=== PATIENT | female | born 1940 | race Caucasian/White ===

== ENCOUNTER 2018-04-10 08:33 | Day surgery (SDC) | payer MEDICARE, MEDICAID ==
[2018-04-10] MEDS ORDERED: Sodium Chloride 0.9% 5 ML Syringe FLUSH PRN (09:00)
[2018-04-10] MEDS ORDERED: fentaNYL 100 MCG/2 ML SDV ONE (09:09)
[2018-04-10] MEDS ORDERED: Propofol 200 MG/20 ML SDV ONE ×2 (09:09→09:58)
[2018-04-10] MEDS ORDERED: Midazolam 1 MG/ML 2 ML SDV ONE (09:09)
[2018-04-10] MEDS: Sodium Chloride 0.9% 1,000 ML IV SCH (09:18)
[2018-04-10] MEDS ORDERED: Lactated Ringers 1,000 ML ONE (09:58)
[2018-04-10] MEDS ORDERED: ePHEDrine 50 MG/ML SDV IV ONE (10:10)
[2018-04-10] MEDS ORDERED: fentaNYL 100 MCG/2 ML SDV IV ONE (10:10)
[2018-04-10] MEDS ORDERED: Propofol 200 MG/20 ML SDV IV ONE (10:10)
[2018-04-10] MEDS ORDERED: Midazolam 1 MG/ML 2 ML SDV IV ONE (10:10)
--- NOTE | 2018-04-10 10:16 | PCM.PN ---
- General Info Date of Service: 04/10/18 - Review of Systems Systems Review Comment:: 78-year-old female with history of colon polyps and family history of colon cancer here for colonoscopy. She is medically stable to proceed today with no significant recent changes in her health status. Her recent history and physical is reviewed. I discussed the proposed colonoscopy with the patient. She agrees to proceed accepting risks. - Patient Data Vitals - Most Recent: Last Vital Signs Temp 97.5 F 04/10/18 09:00 Pulse 59 L 04/10/18 09:00 Resp 16 04/10/18 09:00 BP 139/70 04/10/18 09:00 Pulse Ox 98 04/10/18 09:00 Weight - Most Recent: 78.018 kg Lab Results Last 24 Hours: Laboratory Results - last 24 hr 04/10/18 Range/Units 09:05 POC Glucose 138 H (74-106) mg/dl Med Orders - Current: Current Medications Sodium Chloride (Normal Saline) 1,000 mls @ 50 mls/hr IV ASDIRECTED MERCEDES Last Admin: 04/10/18 09:18 Dose: 50 mls/hr Sodium Chloride (Syrex Flush) 5 ml FLUSH Q8HR PRN PRN Reason: Keep Vein Open Discontinued Medications Fentanyl (Sublimaze) Confirm Administered Dose 100 mcg .ROUTE .STK-MED ONE Stop: 04/10/18 09:10 Midazolam HCl (Versed 1 Mg/Ml) Confirm Administered Dose 2 mg .ROUTE .STK-MED ONE Stop: 04/10/18 09:10 Propofol (Diprivan 20 Ml) Confirm Administered Dose 200 mg .ROUTE .STK-MED ONE Stop: 04/10/18 09:10 - Problem List Review Problem List Initiated/Reviewed/Updated: Yes - My Orders Last 24 Hours: My Active Orders 04/09/18 16:21 Resuscitation Status Routine 04/10/18 09:00 Blood Glucose Check, Bedside [RC] BIDMEALS Patient to Empty Bladder [RC] ASDIRECTED Peripheral IV Care [RC] . DIRECTED Verify Patient Consent Obtain [RC] ASDIRECTED Vital Signs [RC] PER UNIT ROUTINE Sodium Chloride 0.9% [Normal Saline] 1,000 ml IV ASDIRECTED Sodium Chloride 0.9% [Syrex Flush] 5 ml FLUSH Q8HR PRN Peripheral IV Insertion Adult [OM.PC] Routine 04/10/18 Breakfast Nothing Per Oral Diet [DIET] - Assessment Assessment:: Family history of colon cancer - Plan Plan:: Colonoscopy
--- NOTE | 2018-04-10 11:26 | PCM.OPNOTE ---
- General Post-Op/Procedure Note Date of Surgery/Procedure: 04/10/18 Operative Procedure(s): Colonoscopy with polypectomy and fulgaration Findings: Multiple small right sided colon polyps Moderate Sigmoid Diverticulosis External Hemorrhoids Pre Op Diagnosis: Family History of Colon Cancer Post-Op Diagnosis: Colon Polyps. Diverticulosis. Hemorrhoids Anesthesia Technique: MAC Primary Surgeon: Emir Lopez Pathology: Multiple colon polyps Output, Urine Amount: 0 EBL in mLs: 0 Complications: None Condition: Good
--- NOTE | 2018-04-10 18:08 | OR ---
DATE OF SURGERY: 04/10/2018 SURGEON: Emir Lopez MD PREOPERATIVE DIAGNOSIS: Family history of colon cancer. POSTOPERATIVE DIAGNOSIS: Multiple colon polyps, diverticulosis, and hemorrhoids. OPERATION PERFORMED: Colonoscopy with polypectomy and fulguration. INDICATIONS FOR SURGERY: This 78-year-old female has a known family history of colon cancer in her first-degree relative. It has been several years since her last colonoscopy and she comes to have this exam performed today. FINDINGS: Multiple polyps are noted in the patient's right colon. There were clusters of polyps in the proximal transverse colon, the hepatic flexure, and the cecum. Each of these areas had 3 to 5 small sessile polyps. These ranged in size from 4 to 6 mm. The patient also has a moderate degree of sigmoid diverticulosis which is not acutely inflamed or otherwise complicated. She also has some [id number] sized external hemorrhoids. DESCRIPTION OF PROCEDURE: The patient was taken to the operating room. She was given intravenous sedation and with her in the left lateral decubitus position, digital rectal exam was performed showing no rectal masses. The Olympus colonoscope was inserted into the rectum. Retroflexed examination of the rectal canal was performed. The scope was then carefully advanced under direct visualization through the left side of the colon. Once the right side of the colon was reached, multiple polyps were noted, and these were treated as encountered. The larger polyps were removed with cautery snare and retrieved into a polyp trap. The smaller polyps were destroyed with the snare by fulguration. In this manner, all visualized polyps were either destroyed or removed, and those removed were submitted for pathologic evaluation. With careful persistent manipulation, the scope was able to be advanced to the cecum and cecal acquisition was confirmed by noting the normal internal cecal anatomy including the appendiceal orifice and ileocecal valve. Once the cecum had been carefully examined, and the cecal polyps had been removed or destroyed, the scope was slowly withdrawn, sequentially re-examining the colonic segments. Some small polyps were also noted during scope withdrawal, and they were also destroyed either by cautery snare or fulguration with the snare. After the entire colon and rectum had been fully examined and with no sign of bleeding or any other complication, the scope was removed and the patient was taken from the operating room in satisfactory condition. ESTIMATED BLOOD LOSS: Zero. COMPLICATIONS: None. PROGNOSIS: Good. /[id number]/MODL
== END 2018-04-10 12:20 | disposition home or self-care (01) ==
LOC: KA.SDS 08:33
PROVIDERS: ATTEND Surgery
DX: Z12.11 Encounter for screening for malignant neoplasm of colon (principal); D12.0 Benign neoplasm of cecum; D12.3 Benign neoplasm of transverse colon; K57.30 Diverticulosis of large intestine without perforation or abscess without bleeding; K64.4 Residual hemorrhoidal skin tags; E11.36 Type 2 diabetes mellitus with diabetic cataract; E66.9 Obesity, unspecified; Z68.27 Body mass index [BMI] 27.0-27.9, adult; K21.9 Gastro-esophageal reflux disease without esophagitis; F32.9 Major depressive disorder, single episode, unspecified; M19.90 Unspecified osteoarthritis, unspecified site; E89.0 Postprocedural hypothyroidism; E78.5 Hyperlipidemia, unspecified; F41.1 Generalized anxiety disorder; Z79.84 Long term (current) use of oral hypoglycemic drugs; Z79.82 Long term (current) use of aspirin; Z79.899 Other long term (current) drug therapy; Z88.5 Allergy status to narcotic agent; Z80.0 Family history of malignant neoplasm of digestive organs
CPT/HCPCS: 00812; 82962; J2250; J2704; J3010; J7030

== ENCOUNTER 2019-03-28 13:08 | Emergency (ER) | payer MEDICARE, MEDICAID ==
--- NOTE | 2019-03-28 13:34 | EDM.PDOC ---
ED HPI GENERAL MEDICAL PROBLEM - General Chief Complaint: General Stated Complaint: MULTIPLE FALLS Time Seen by Provider: 03/28/19 13:24 Source of Information: Reports: Patient, Family (Daughter is a nurse here at [employer]). 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 Patient states that she has been gradually becoming weaker in her lower extremities, and 4 days ago fell from a standing position, landing on right hip and also injuring back. Patient's daughter is a nurse here at [employer] and present. Patient was seen by primary care doctor yesterday, and underwent CT chest to rule out PE due to history of DVT. Radiology report was negative for PE. No further x-rays were performed to evaluate extent of fall. At this time. Patient denies chest pain, shortness of breath, abdominal pain, nausea, vomiting , diarrhea, any head injury, blurry vision, or pain anywhere else. Onset: Gradual Onset Date: 03/24/19 Duration: Day(s):, Getting Worse Location: Reports: Back, Pelvis Quality: Reports: Ache Severity: Mild Improves with: Reports: Immobilization Worsens with: Reports: Movement Context: Reports: Trauma (Fall from standing position) Associated Symptoms: Reports: No Other Symptoms. Denies: Chest Pain, Fever/ Chills, Nausea/Vomiting, Shortness of Breath Middle Back Pain Score (Numeric/FACES): 0 - Related Data Allergies Allergy/AdvReac Type Severity Reaction Status Date / Time morphine Allergy Nausea Verified 03/28/19 13:17 Home Meds: Home Meds Acai Hester Extract [Acai] 1,000 mg PO DAILY 04/09/18 [History] Aspirin [Adult Aspirin] 81 mg PO DAILY 04/09/18 [History] Aspirin/Acetaminophen/Caffeine [Extra Pain Relief Caplet] 2 tab PO Q6H PRN 04/09 [History] Chromium Picolinate 200 mcg PO DAILY 04/09/18 [History] Cyanocobalamin (Vitamin B-12) [B-12] 1,000 mcg PO DAILY 04/09/18 [History] Escitalopram Oxalate 10 mg PO DAILY 04/09/18 [History] Levothyroxine 112 mcg PO ACBREAKFAST 04/09/18 [History] Niacin 500 mg PO DAILY 04/09/18 [History] Ubidecarenone [Co Q-10] 100 mg PO DAILY 04/09/18 [History] metFORMIN [Glucophage] 500 mg PO BIDMEALS 04/09/18 [History] Calcium Carb/Vit D3/Minerals [Calcium 600+D Plus Minerals] 1 tab PO DAILY [History] Cetirizine HCl [Zyrtec] 10 mg PO DAILY 04/10/18 [History] Cinnamon [Cinnamon Oil] 30 ml PO DAILY 03/28/19 [History] Flaxseed Oil [Flax Oil] 1,000 mg PO DAILY 03/28/19 [History] Past Medical History HEENT History: Reports: Cataract, Impaired Vision Respiratory History: Reports: Pneumonia, Recurrent, Sleep Apnea Gastrointestinal History: Reports: Diverticulosis, GERD, Hiatal Hernia Genitourinary History: Reports: Renal Calculus, Urinary Incontinence, UTI, Recurrent CENSUS CLERK History: Reports: , Spontaneous Musculoskeletal History: Reports: Back Pain, Chronic, Fracture Neurological History: Reports: Concussion Psychiatric History: Reports: Anxiety, Depression, Panic Attack Endocrine/Metabolic History: Reports: Diabetes Mellitus, Type 3c, Hypoparathyroidism, Hypothyroidism - Infectious Disease History Infectious Disease History: Reports: Chicken Pox, Measles, Mumps - Past Surgical History Head Surgeries/Procedures: Reports: None HEENT Surgical History: Reports: Tonsillectomy Respiratory Surgical History: Reports: None GI Surgical History: Reports: Appendectomy, Cholecystectomy, Colonoscopy, EGD, Polypectomy Female Surgical History: Reports: Breast Biopsy, Hysterectomy, Lithotripsy/ ESWL, Salpingo-Oophorectomy, Other (See Below) Other Female Surgeries/Procedures: bladder repair Endocrine Surgical History: Reports: Parathyroidectomy, Thyroidectomy, Other ( See Below) Other Endocrine Surgeries/Procedures: Removed half of thyroid Neurological Surgical History: Reports: None Musculoskeletal Surgical History: Reports: Hip Replacement Dermatological Surgical History: Reports: None Social & Family History - Family History Family Medical History: Noncontributory - Tobacco Use Smoking Status *Q: Never Smoker - Caffeine Use Caffeine Use: Reports: None - Recreational Drug Use Recreational Drug Use: No ED ROS GENERAL - Review of Systems Review Of Systems: ROS reveals no pertinent complaints other than HPI. Constitutional: Reports: No Symptoms HEENT: Reports: No Symptoms Respiratory: Reports: No Symptoms Cardiovascular: Reports: No Symptoms Endocrine: Reports: No Symptoms GI/Abdominal: Reports: No Symptoms. Denies: Abdominal Pain : Reports: No Symptoms Musculoskeletal: Reports: Back Pain Skin: Reports: No Symptoms Neurological: Reports: No Symptoms Psychiatric: Reports: No Symptoms Hematologic/Lymphatic: Reports: No Symptoms Immunologic: Reports: No Symptoms ED EXAM, GENERAL - Physical Exam Exam: See Below Exam Limited By: No Limitations General Appearance: Alert, WD/WN, No Apparent Distress Throat/Mouth: Normal Inspection, Normal Oropharynx, No Airway Compromise Head: Atraumatic, Normocephalic Neck: Normal Inspection, Supple, Non-Tender, Full Range of Motion Respiratory/Chest: No Respiratory Distress, Lungs Clear, Normal Breath Sounds, No Accessory Muscle Use, Chest Non-Tender Cardiovascular: Regular Rate, Rhythm, No Murmur GI/Abdominal: Normal Bowel Sounds, Soft, Non-Tender, No Organomegaly, No Distention, No Abnormal Bruit, No Mass, Pelvis Stable Back Exam: Paraspinal Tenderness. No: CVA Tenderness (L), CVA Tenderness (R) Extremities: Normal Inspection, Normal Range of Motion, Non-Tender, No Pedal Edema Neurological: Alert, Oriented, Normal Cognition Psychiatric: Normal Affect, Normal Mood Skin Exam: Warm, Dry, Intact, Normal Color, No Rash Lymphatic: No Adenopathy Course - Vital Signs Last Recorded V/S: Last Vital Signs Temp 98.7 F 03/28/19 13:11 Pulse 65 03/28/19 13:11 Resp 20 03/28/19 13:11 BP 115/53 L 03/28/19 13:11 Pulse Ox 99 03/28/19 13:11 - Orders/Labs/Meds Orders: Active Orders 24 hr Category Date Time Status Lumbar Spine 2 or 3V [CR] Stat Exams 03/28/19 13:24 Ordered Pelvis 1V or 2V [CR] Stat Exams 03/28/19 13:24 Ordered Labs: Laboratory Tests 03/28/19 03/28/19 03/28/19 Range/Units 13:18 13:20 13:20 WBC 6.85 (5.00-10.00) 10^3/uL RBC 4.14 (3.80-5.50) 10^6/uL Hgb 12.6 (12.0-16.0) g/dL Hct 38.5 (37.0-47.0) % MCV 93.0 H (82.0-92.0) fL MCH 30.4 (27.0-31.0) pg MCHC 32.7 (32.0-36.0) g/dL RDW 13.1 (11.5-14.5) % Plt Count 363 (150-400) 10^3/uL MPV 9.3 (7.4-10.4) fL Immature Gran % (Auto) 0.3 (0.0-5.0) % Neut % (Auto) 58.7 (50.0-70.0) % Lymph % (Auto) 31.1 (20.0-40.0) % Colbert % (Auto) 6.1 (2.0-8.0) % Eos % (Auto) 2.8 (1.0-3.0) % Baso % (Auto) 1.0 (0.0-1.0) % Immature Gran # (Auto) 0.02 (0.00-0.50) 10^3/uL Neut # (Auto) 4.02 (2.50-7.00) 10^3/uL Lymph # (Auto) 2.13 (1.00-4.00) 10^3/uL Colbert # (Auto) 0.42 (0.10-0.80) 10^3/uL Eos # (Auto) 0.19 (0.10-0.30) 10^3/uL Baso # (Auto) 0.07 (0.00-0.10) 10^3/uL Sodium 138 (136-145) mmol/L Potassium 4.0 (3.3-5.3) mmol/L Chloride 100 (98-115) mmol/L Carbon Dioxide 25.3 (21.0-32.0) mmol/L Anion Gap 16.7 H (5-15) mmol/L BUN 15 (6-25) mg/dL Creatinine 0.77 (0.51-1.17) mg/dL Est Cr Clr Drug Dosing 55.46 mL/min Estimated GFR (MDRD) > 60 mL/min Glucose 97 (75 - 99) mg/dL Calcium 9.7 (8.7-10.3) mg/dL Total Bilirubin 0.5 (0.2-1.0) mg/dL AST 254 H (15-37) U/L ALT 244 H (12-78) U/L Alkaline Phosphatase 64 (46-116) IU/L Total Protein 7.3 (6.4-8.2) g/dL Albumin 3.74 (3.00-4.80) g/dL Specimen Type Urinvoid Urine Color Yellow (YELLOW) Urine Appearance Slightly cloudy H (CLEAR) Urine pH 5.5 (5.0-9.0) Ur Specific [place] >= 1.030 (1.005-1.030) Urine Protein 100 H (NEGATIVE) mg/dL Urine Glucose (UA) Negative (NEGATIVE) mg/dL Urine Ketones Negative (NEGATIVE) mg/dL Urine Occult Blood Moderate H (NEGATIVE) Urine Nitrite Negative (NEGATIVE) Urine Bilirubin Small H (NEGATIVE) Urine Urobilinogen 0.2 (0.2-1.0) E.U./dL Ur Leukocyte Esterase Negative (NEGATIVE) Urine RBC 0-5 (0-5) /HPF Urine WBC 0-5 (0-5) /HPF Ur Epithelial Cells Moderate H /LPF Amorphous Sediment Few (0/HPF) /HPF Urine Bacteria Moderate H (NONE TO FEW) /HPF - Radiology Interpretation Free Text/Narrative:: Lumbar spine and pelvic x-ray show no acute fracture or dislocation. There is moderate to advanced changes of spondylosis and DJD - Re-Assessments/Exams Free Text/Narrative Re-Assessment/Exam: 03/28/19 13:57 Hepatic enzymes noted to be mildly elevated. This is consistent with previous lab work presented by patient. She is ready been evaluated with ultrasound. 03/28/19 14:11 Patient afebrile, nontoxic appearing, vital signs stable. Patient is a follow- up visit with orthopedic surgery on Monday. CT was not performed today based on CAT scan with IV contrast yesterday, and with anticipation of an MRI performed next week. 03/28/19 14:12 Departure - Departure Time of Disposition: 14:12 Disposition: Home, Self-Care 01 Condition: Good Clinical Impression: Low back pain Qualifiers: Chronicity: chronic Back pain laterality: bilateral Sciatica presence: without sciatica Qualified Code(s): M54.5 - Low back pain; G89.29 - Other chronic pain Degenerative joint disease (DJD) of lumbar spine Qualifiers: Spinal osteoarthritis complication: unspecified spinal osteoarthritis Qualified Code(s): M47.816 - Spondylosis without myelopathy or radiculopathy, lumbar region Lower extremity weakness Qualifiers: Laterality: bilateral Qualified Code(s): R29.898 - Other symptoms and signs involving the musculoskeletal system - Discharge Information Instructions: Chronic Back Pain, [id number], Radicular Pain Referrals: Annette Talbert MD [Primary Care Provider] - Forms: ED Department Discharge Additional Instructions: Follow-up with orthopedic surgery on Monday as scheduled. Return to emergency department sooner if symptoms continue or worsen. - My Orders Last 24 Hours: My Active Orders 03/28/19 13:24 Lumbar Spine 2 or 3V [CR] Stat Pelvis 1V or 2V [CR] Stat - Assessment/Plan Last 24 Hours: My Active Orders 03/28/19 13:24 Lumbar Spine 2 or 3V [CR] Stat Pelvis 1V or 2V [CR] Stat Assessment:: Low back pain Plan: Follow-up with orthopedic as scheduled on Monday
[2019-03-28 13:49] LABS: ANION GAP 16.7 mmol/L (5-15); CHLORIDE,CL 100 mmol/L (98-115); SODIUM,NA 138 mmol/L (136-145)
--- NOTE | 2019-03-28 14:05 | CR ---
[id number] RAD/RAD Lumbar Spine 2-3V Exam: RAD Lumbar Spine 2-3V Indication:FALL. Comparison: CT from March 27, 2019. Discussion: Chronic L1 superior endplate compression deformity. No evidence of an acute fracture. Thoracolumbar levo convexity. Moderate to advanced changes of spondylosis, including degenerative disc disease and facet joint arthropathy. Findings result in grade 1 anterolisthesis of L4-5. Bones are diffusely demineralized. Impression: No acute findings. Other findings are described above. Von Higgins MD 03/28/19 [id number] Thank you for allowing us to participate in the care of your patient.
--- NOTE | 2019-03-28 14:20 | CR ---
[id number] RAD/RAD Pelvis 1-2V EXAM: AP PELVIS CLINICAL DATA: Fall. COMPARISON: November 08, 2013. FINDINGS: Partially imaged right hip arthroplasty without evident hardware complication. Mild osteoarthritis left hip. Lower lumbar spondylosis. Gastrointestinal contrast agent within the colon. No fracture or dislocation is identified. IMPRESSION: 1. No acute osseous abnormality. Long Gaston MD 03/28/19 [id number] Thank you for allowing us to participate in the care of your patient.
== END 2019-03-28 14:30 | disposition home or self-care (01) ==
LOC: KA.ED 13:08
DX: M47.816 Spondylosis without myelopathy or radiculopathy, lumbar region (principal); G89.29 Other chronic pain; M62.81 Muscle weakness (generalized); K21.9 Gastro-esophageal reflux disease without esophagitis; F41.9 Anxiety disorder, unspecified; F32.9 Major depressive disorder, single episode, unspecified; E11.9 Type 2 diabetes mellitus without complications; Z88.5 Allergy status to narcotic agent; Z79.82 Long term (current) use of aspirin; Z79.899 Other long term (current) drug therapy; Z79.84 Long term (current) use of oral hypoglycemic drugs; Z87.442 Personal history of urinary calculi
CPT/HCPCS: 36415; 72100; 72170; 80053; 81001; 85025; 99283; 99284-25

== ENCOUNTER 2019-11-01 21:43 | Inpatient (IN) | payer MEDICARE, MEDICAID ==
--- NOTE | 2019-11-01 22:31 | EDM.PDOC ---
ED HPI GENERAL MEDICAL PROBLEM - General Chief Complaint: Respiratory Problem Stated Complaint: respiratory distress Time Seen by Provider: 11/01/19 22:16 Source of Information: Reports: Patient, EMS, EMS Notes Reviewed, Family ( Patient's daughter is a nurse here at [facility]) History Limitations: Reports: No Limitations - History of Present Illness INITIAL COMMENTS - FREE TEXT/NARRATIVE: Patient is a 79-year-old female that presents from [address] [place] [address] via EMS with a complaint of shortness of breath. The hospital was not contacted by the nursing facility for provider authorization to transfer patient. Patient arrived with limited information based only on EMS and daughter's depiction. Patient states that she developed some upper respiratory symptoms, cough, and shortness of breath since yesterday. Today, she was given applesauce, although she is supposed to only have tube feedings secondary to diagnosis of dysphagia. Symptoms became worse today. Patient denies chest pain, headache, nausea, vomiting, diarrhea, or abdominal pain. Onset: Gradual Duration: Day(s): Location: Reports: Chest Severity: Mild Improves with: Reports: None Worsens with: Reports: Breathing Associated Symptoms: Reports: Cough, cough w sputum, Fever/Chills, Shortness of Breath. Denies: Chest Pain, Diaphoresis, Headaches, Nausea/Vomiting - Related Data Allergies Allergy/AdvReac Type Severity Reaction Status Date / Time morphine Allergy Nausea Verified 11/01/19 22:06 Home Meds: Home Meds Levothyroxine 125 mcg PEGTUBE ACBREAKFAST 04/09/18 [History] metFORMIN [Glucophage] 500 mg PEGTUBE BID@,04/09/18 [History] Acetaminophen [Tylenol] 650 mg PEGTUBE Q4H PRN 11/01/19 [History] Cholecalciferol (Vitamin D3) [Vitamin D3] 1,000 unit PEGTUBE DAILY 11/01/19 [ History] Insulin Detemir [Levemir] 5 units SQ BID@11/01/19 [History] Levothyroxine [Synthroid] 100 mcg PEGTUBE ACBREAKFAST 11/01/19 [History] Liothyronine [Cytomel] 5 mcg PEGTUBE BID 11/01/19 [History] Loperamide [Imodium AD] 2 mg PEGTUBE QID PRN 11/01/19 [History] Multivitamin/Iron/Folic Acid [Centrum Complete Multivit] 1 tab PEGTUBE DAILY 02/14 [History] Ondansetron [Zofran ODT] 4 mg PEGTUBE Q6H PRN 11/01/19 [History] Psyllium Husk [Metamucil] 660 gm PEGTUBE DAILY 11/01/19 [History] Sertraline HCl 75 mg PEGTUBE DAILY 11/01/19 [History] Sulfamethoxazole/Trimethoprim [Bactrim Ds Tablet] 1 tab PEGTUBE MOTHSA 11/01/19 [History] predniSONE [Prednisone] 60 mg PEGTUBE DAILY 11/01/19 [History] Past Medical History HEENT History: Reports: Cataract, Impaired Vision Cardiovascular History: Reports: Hypertension Respiratory History: Reports: Pneumonia, Recurrent, Sleep Apnea Gastrointestinal History: Reports: Diverticulosis, GERD, Hiatal Hernia Genitourinary History: Reports: Renal Calculus, Urinary Incontinence, UTI, Recurrent B[employer]FORMAT[employer] ENGINEER History: Reports: , Spontaneous Musculoskeletal History: Reports: Back Pain, Chronic, Fracture Neurological History: Reports: Concussion Psychiatric History: Reports: Anxiety, Depression, Panic Attack Endocrine/Metabolic History: Reports: Diabetes Mellitus, Type 3c, Hypoparathyroidism, Hypothyroidism - Infectious Disease History Infectious Disease History: Reports: Chicken Pox, Measles, Mumps - Past Surgical History Head Surgeries/Procedures: Reports: None HEENT Surgical History: Reports: Tonsillectomy Respiratory Surgical History: Reports: None GI Surgical History: Reports: Appendectomy, Cholecystectomy, Colonoscopy, EGD, Polypectomy Female Surgical History: Reports: Breast Biopsy, Hysterectomy, Lithotripsy/ ESWL, Salpingo-Oophorectomy, Other (See Below) Other Female Surgeries/Procedures: bladder repair Endocrine Surgical History: Reports: Parathyroidectomy, Thyroidectomy, Other ( See Below) Other Endocrine Surgeries/Procedures: Removed half of thyroid Neurological Surgical History: Reports: None Musculoskeletal Surgical History: Reports: Hip Replacement Dermatological Surgical History: Reports: None Social & Family History - Family History Family Medical History: Noncontributory - Caffeine Use Caffeine Use: Reports: None ED ROS GENERAL - Review of Systems Review Of Systems: Comprehensive ROS is negative, except as noted in HPI. Constitutional: Reports: Fever HEENT: Reports: No Symptoms Respiratory: Reports: Shortness of Breath, Cough, Sputum. Denies: Hemoptysis Cardiovascular: Reports: No Symptoms Endocrine: Reports: No Symptoms GI/Abdominal: Reports: No Symptoms : Reports: No Symptoms Musculoskeletal: Reports: No Symptoms Skin: Reports: No Symptoms Neurological: Reports: No Symptoms Psychiatric: Reports: No Symptoms Hematologic/Lymphatic: Reports: No Symptoms Immunologic: Reports: No Symptoms ED EXAM, GENERAL - Physical Exam Exam: See Below Exam Limited By: No Limitations General Appearance: Alert, WD/WN, No Apparent Distress Nose: Normal Inspection, Normal Mucosa, No Blood Throat/Mouth: Normal Inspection, Normal Oropharynx, No Airway Compromise Head: Atraumatic, Normocephalic Neck: Normal Inspection, Supple Respiratory/Chest: No Respiratory Distress, Decreased Breath Sounds (Bibasilar) , Rales, Rhonchi Cardiovascular: Regular Rate, Rhythm, Diastolic Murmur GI/Abdominal: Normal Bowel Sounds, Soft, Non-Tender, No Organomegaly, No Distention, No Abnormal Bruit, No Mass, Other (Feeding tube) Back Exam: Normal Inspection. No: CVA Tenderness (L), CVA Tenderness (R) Extremities: Normal Inspection, No Pedal Edema Neurological: Alert, Oriented, Normal Cognition Psychiatric: Normal Affect, Normal Mood Skin Exam: Warm, Dry, Intact, Normal Color, No Rash Lymphatic: No Adenopathy Course - Vital Signs Last Recorded V/S: Last Vital Signs Temp 97.9 F 11/01/19 21:59 Pulse 88 11/01/19 21:59 Resp 18 11/01/19 21:59 BP 133/63 11/01/19 21:59 Pulse Ox 94 L 11/01/19 21:59 - Orders/Labs/Meds Orders: Active Orders 24 hr Category Date Time Status Oxygen Therapy Adult [Oxygen Therapy, ED] [RC] Care 11/01/19 22:18 Ordered ASDIRECTED Peripheral IV Care [RC] . DIRECTED Care 11/01/19 22:19 Ordered Chest 2V [CR] Stat Exams 11/01/19 22:17 Ordered CULTURE SPUTUM + SMEAR [RM] Stat Lab 11/01/19 22:17 Ordered Sodium Chloride 0.9% [Saline Flush] Med 11/01/19 22:19 Ordered 10 ml FLUSH Q8HR PRN Peripheral IV Insertion Adult [OM.PC] Routine Oth 11/01/19 22:19 Ordered Medication Orders Sodium Chloride (Saline Flush) 10 ml FLUSH Q8HR PRN PRN Reason: keep vein open Labs: Laboratory Tests 11/01/19 11/01/19 Range/Units 22:55 22:55 WBC 9.28 (5.00-10.00) 10^3/uL RBC 3.86 (3.80-5.50) 10^6/uL Hgb 11.9 L (12.0-16.0) g/dL Hct 37.0 (37.0-47.0) % MCV 95.9 H (82.0-92.0) fL MCH 30.8 (27.0-31.0) pg MCHC 32.2 (32.0-36.0) g/dL RDW 15.2 H (11.5-14.5) % Plt Count 338 (150-400) 10^3/uL MPV 9.9 (7.4-10.4) fL Immature Gran % (Auto) 0.2 (0.0-5.0) % Neut % (Auto) 74.7 H (50.0-70.0) % Lymph % (Auto) 18.6 L (20.0-40.0) % [place] % (Auto) 5.2 (2.0-8.0) % Eos % (Auto) 0.9 L (1.0-3.0) % Baso % (Auto) 0.4 (0.0-1.0) % Immature Gran # (Auto) 0.02 (0.00-0.50) 10^3/uL Neut # (Auto) 6.93 (2.50-7.00) 10^3/uL Lymph # (Auto) 1.73 (1.00-4.00) 10^3/uL [place] # (Auto) 0.48 (0.10-0.80) 10^3/uL Eos # (Auto) 0.08 L (0.10-0.30) 10^3/uL Baso # (Auto) 0.04 (0.00-0.10) 10^3/uL Sodium 135 L (136-145) mmol/L Potassium 4.7 (3.3-5.3) mmol/L Chloride 95 L (98-115) mmol/L Carbon Dioxide 34.2 H (21.0-32.0) mmol/L Anion Gap 10.5 (5-15) mmol/L BUN 20 (6-25) mg/dL Creatinine 0.41 L (0.51-1.17) mg/dL Est Cr Clr Drug Dosing TNP Estimated GFR (MDRD) > 60 mL/min Glucose 122 H (75 - 99) mg/dL Calcium 8.9 (8.7-10.3) mg/dL Total Bilirubin 0.4 (0.2-1.0) mg/dL AST 215 H (15-37) U/L ALT 272 H (12-78) U/L Alkaline Phosphatase 70 (46-116) IU/L Total Protein 6.5 (6.4-8.2) g/dL Albumin 3.20 (3.00-4.80) g/dL Meds: Medications Generic Name Dose Route Start Last Admin Trade Name Freq PRN Reason Stop Dose Admin Sodium Chloride 10 ml 11/01/19 22:19 Saline Flush FLUSH Q8HR PRN keep vein open Discontinued Medications Generic Name Dose Route Start Last Admin Trade Name Freq PRN Reason Stop Dose Admin Ondansetron HCl 4 mg 11/01/19 23:08 11/01/19 23:27 Zofran IVPUSH 11/01/19 23:09 4 mg ONETIME ONE Administration - Radiology Interpretation Free Text/Narrative:: Chest x-ray shows right lower lobe infiltrate suspicious for aspiration pneumonia - Re-Assessments/Exams Free Text/Narrative Re-Assessment/Exam: 11/01/19 23:31 Patient afebrile, vital signs stable, will admit inpatient for Dr. Sarkar's service and follow Departure - Departure Time of Disposition: 23:59 Disposition: Admitted As Inpatient 66 Condition: Fair Clinical Impression: Aspiration pneumonia of right lower lobe Qualifiers: Aspiration pneumonia type: unspecified Qualified Code(s): J69.0 - Pneumonitis due to inhalation of food and vomit - Discharge Information Forms: ED Department Discharge Sepsis Event Note - Evaluation Sepsis Screening Result: No Definite Risk - Focused Exam Vital Signs: Vital Signs Temp Pulse Resp BP Pulse Ox 11/01/19 21:59 97.9 F 88 18 133/63 94 L Date Exam was Performed: 11/01/19 Time Exam was Performed: 23:29 - My Orders Last 24 Hours: My Active Orders 11/01/19 22:17 Chest 2V [CR] Stat CULTURE SPUTUM + SMEAR [RM] Stat 11/01/19 22:18 Oxygen Therapy Adult [Oxygen Therapy, ED] [RC] ASDIRECTED 11/01/19 22:19 Peripheral IV Care [RC] . DIRECTED Sodium Chloride 0.9% [Saline Flush] 10 ml FLUSH Q8HR PRN Peripheral IV Insertion Adult [OM.PC] Routine - Assessment/Plan Admission H&P: Please use this note as an admission H&P Last 24 Hours: My Active Orders 11/01/19 22:17 Chest 2V [CR] Stat CULTURE SPUTUM + SMEAR [RM] Stat 11/01/19 22:18 Oxygen Therapy Adult [Oxygen Therapy, ED] [RC] ASDIRECTED 11/01/19 22:19 Peripheral IV Care [RC] . DIRECTED Sodium Chloride 0.9% [Saline Flush] 10 ml FLUSH Q8HR PRN Peripheral IV Insertion Adult [OM.PC] Routine Assessment:: Hypoxemia, aspiration pneumonia Plan: Admit to Dr. Sarkar's service
[2019-11-01] MEDS ORDERED: Ondansetron 4 MG/2 ML SDV IVPUSH ONE (23:08)
[2019-11-01 23:24] LABS: ANION GAP 10.5 mmol/L (5-15); CHLORIDE,CL 95 mmol/L (98-115); SODIUM,NA 135 mmol/L (136-145)
[2019-11-01] MEDS ORDERED: Sodium Chloride 0.9% 10 ML Syringe FLUSH PRN (23:34)
[2019-11-01] MEDS: Sodium Chloride 0.9% 10 ML Syringe FLUSH PRN (23:40)
[2019-11-01] MEDS ORDERED: Sodium Chloride 0.9% 1,000 ML IV SCH (23:45)
[2019-11-01] MEDS ORDERED: cefTRIAXone 1 GM Vial IVPUSH ONE (23:52)
[2019-11-01] MEDS ORDERED: Non-Formulary Medication 1 Each (Loperamide [Imodium Ad] 2 MG) PEGTUBE PRN (23:52)
[2019-11-01] MEDS ORDERED: Ondansetron 4 MG Tab.DIS PEGTUBE PRN (23:52)
[2019-11-02] MEDS ORDERED: Levothyroxine 112 MCG Tab GTUBE SCH (07:30)
[2019-11-02] MEDS ORDERED: Levothyroxine 100 MCG Tab GTUBE SCH (07:30)
[2019-11-02] MEDS ORDERED: INSULIN DETEMIR 5 UNIT SQ SCH (08:00)
[2019-11-02] MEDS ORDERED: Liothyronine 5 MCG Tab GTUBE SCH (09:00)
[2019-11-02] MEDS ORDERED: Non-Formulary Medication 1 Each (Psyllium Husk [Metamucil] 660 GM) PEGTUBE SCH (09:00)
[2019-11-02] MEDS ORDERED: Non-Formulary Medication 1 Each (Cholecalciferol (Vitamin D3) [Vitamin D3] 1,000 UNIT) PEGTUBE SCH (09:00)
[2019-11-02] MEDS: predniSONE 20 MG Tab GTUBE SCH (09:38)
[2019-11-02] MEDS: Sertraline 50 MG Tab PEGTUBE SCH (09:39)
[2019-11-02] MEDS: metFORMIN 500 MG Tab GTUBE SCH ×2 (09:41→18:19)
[2019-11-02] MEDS ORDERED: Levothyroxine 100 MCG Tab PO ONE (09:45)
[2019-11-02] MEDS: Cholecalciferol (Vitamin D3) 25 MCG Tab PEGTUBE SCH (10:28)
[2019-11-02] MEDS: Psyllium Husk Powder Sugar Free 5.85 GM Packet PEGTUBE SCH (10:28)
[2019-11-02] MEDS: Acetaminophen 325 MG Tab PEGTUBE PRN ×2 (10:45→19:22)
--- NOTE | 2019-11-02 10:50 | PCM.PN ---
- General Info Date of Service: 11/02/19 Admission Dx/Problem (Free Text): Patient is a 79-year-old female who presented to the emergency department last evening with a complaint of shortness of breath. Patient was found to have right lower lobe aspiration pneumonia and hypoxemia. Initially in the emergency department patient had difficulty with saturations in the mid 80s and required nonrebreather mask. By the time the patient left emergency department she was on nasal cannula, not tachypneic, and oxygen saturations in the low 90s. Patient is a resident at [address] [place] [address]. Her daughter is a nurse here at [facility]. Although patient is on tube feedings with occasional ice chips by mouth, it appears that she was given applesauce by mouth yesterday and aspirated. Patient became hypoxic and was transferred to the emergency department. Patient does have history of dysphasia and has a G- tube for feedings. Patient was afebrile and did not have leukocytosis. Patient was given 1 g Rocephin IV in the ER. At no time did patient complain of chest pain. Functional Status: Reports: Pain Controlled Pain Score: 0 - Review of Systems General: Reports: No Symptoms HEENT: Reports: No Symptoms Pulmonary: Reports: Shortness of Breath, Cough Cardiovascular: Reports: No Symptoms Gastrointestinal: Reports: No Symptoms Genitourinary: Reports: No Symptoms Musculoskeletal: Reports: No Symptoms Skin: Reports: No Symptoms Neurological: Reports: No Symptoms Psychiatric: Reports: No Symptoms - Patient Data Vitals - Most Recent: Last Vital Signs Temp 97.8 F 11/02/19 06:30 Pulse 75 11/02/19 06:30 Resp 16 11/02/19 06:30 BP 109/57 L 11/02/19 06:30 Pulse Ox 93 L 11/02/19 06:30 Weight - Most Recent: 141 lb I&O - Last 24 Hours: Intake & Output 11/01/19 11/02/19 11/02/19 22:59 06:59 14:59 Intake Total 555 Balance 555 Lab Results Last 24 Hours: Laboratory Results - last 24 hr 11/01/19 11/01/19 11/02/19 Range/Units 22:55 22:55 06:09 WBC 9.28 (5.00-10.00) 10^3/uL RBC 3.86 (3.80-5.50) 10^6/uL Hgb 11.9 L (12.0-16.0) g/dL Hct 37.0 (37.0-47.0) % MCV 95.9 H (82.0-92.0) fL MCH 30.8 (27.0-31.0) pg MCHC 32.2 (32.0-36.0) g/dL RDW 15.2 H (11.5-14.5) % Plt Count 338 (150-400) 10^3/uL MPV 9.9 (7.4-10.4) fL Immature Gran % (Auto) 0.2 (0.0-5.0) % Neut % (Auto) 74.7 H (50.0-70.0) % Lymph % (Auto) 18.6 L (20.0-40.0) % [place] % (Auto) 5.2 (2.0-8.0) % Eos % (Auto) 0.9 L (1.0-3.0) % Baso % (Auto) 0.4 (0.0-1.0) % Immature Gran # (Auto) 0.02 (0.00-0.50) 10^3/uL Neut # (Auto) 6.93 (2.50-7.00) 10^3/uL Lymph # (Auto) 1.73 (1.00-4.00) 10^3/uL [place] # (Auto) 0.48 (0.10-0.80) 10^3/uL Eos # (Auto) 0.08 L (0.10-0.30) 10^3/uL Baso # (Auto) 0.04 (0.00-0.10) 10^3/uL Sodium 135 L (136-145) mmol/L Potassium 4.7 (3.3-5.3) mmol/L Chloride 95 L (98-115) mmol/L Carbon Dioxide 34.2 H (21.0-32.0) mmol/L Anion Gap 10.5 (5-15) mmol/L BUN 20 (6-25) mg/dL Creatinine 0.41 L (0.51-1.17) mg/dL Est Cr Clr Drug Dosing TNP Estimated GFR (MDRD) > 60 mL/min Glucose 122 H (75 - 99) mg/dL POC Glucose 139 H (74-106) mg/dl Calcium 8.9 (8.7-10.3) mg/dL Total Bilirubin 0.4 (0.2-1.0) mg/dL AST 215 H (15-37) U/L ALT 272 H (12-78) U/L Alkaline Phosphatase 70 (46-116) IU/L Total Protein 6.5 (6.4-8.2) g/dL Albumin 3.20 (3.00-4.80) g/dL Jose Results Last 24 Hours: Microbiology 11/01/19 23:00 Influenza Type A Antigen Screen - Final Nasal Aspirate, Unspecified NEGATIVE INFLUENZA A VIRUS AG REFERENCE RANGE: NEGATIVE Influenza Type B Antigen Screen - Final NEGATIVE INFLUENZA B VIRUS AG REFERENCE RANGE: NEGATIVE Med Orders - Current: Current Medications Acetaminophen (Tylenol) 650 mg PEGTUBE Q4H PRN PRN Reason: Pain Cholecalciferol (Vitamin D3) 25 mcg PEGTUBE DAILY [facility] Last Admin: 11/02/19 10:28 Dose: 25 mcg Levothyroxine Sodium (Synthroid) 200 mcg GTUBE ACBREAKFAST [facility] Levothyroxine Sodium (Levothyroxine) 25 mcg GTUBE ACBREAKFAST [facility] Liothyronine Sodium (Cytomel) 5 mcg GTUBE BID [facility] Metformin HCl (Glucophage) 500 mg GTUBE BID@ [facility] Last Admin: 11/02/19 09:41 Dose: Not Given Non-Formulary Medication (Insulin Detemir) 5 units SQ BID@ [facility] Last Admin: 11/02/19 09:41 Dose: Not Given Non-Formulary Medication (Loperamide [Imodium Ad]) 2 mg PEGTUBE QID PRN PRN Reason: Diarrhea Non-Formulary Medication (Multivitamin/Iron/Folic Acid [Centrum Complete Multivit]) 1 tab PEGTUBE DAILY [facility] Ondansetron HCl (Zofran Odt) 4 mg PEGTUBE Q6H PRN PRN Reason: Nausea Prednisone (Prednisone) 60 mg GTUBE DAILY [facility] Last Admin: 11/02/19 09:38 Dose: 60 mg Psyllium Husk (Metamucil Sugar Free) 1 pkt PEGTUBE DAILY [facility] Sertraline HCl (Zoloft) 75 mg PEGTUBE DAILY [facility] Last Admin: 11/02/19 09:39 Dose: 75 mg Sodium Chloride (Saline Flush) 10 ml FLUSH Q8HR PRN PRN Reason: keep vein open Last Admin: 11/01/19 23:40 Dose: 10 ml Trimethoprim/Sulfamethoxazole (Septra Ds) 1 tab GTUBE MOTHSA [facility] Discontinued Medications Ceftriaxone Sodium (Rocephin) 1 gm IVPUSH ONETIME ONE Stop: 11/01/19 23:53 Last Admin: 11/01/19 23:58 Dose: 1 gm Sodium Chloride (Normal Saline) 1,000 mls @ 125 mls/hr IV ASDIRECTED [facility] Last Admin: 11/01/19 23:52 Dose: 125 mls/hr Levothyroxine Sodium (Synthroid) 100 mcg GTUBE ACBREAKFAST [facility] Last Admin: 11/02/19 09:37 Dose: 100 mcg Levothyroxine Sodium (Synthroid) 100 mcg PO ONETIME ONE Stop: 11/02/19 09:46 Last Admin: 11/02/19 10:27 Dose: 100 mcg Ondansetron HCl (Zofran) 4 mg IVPUSH ONETIME ONE Stop: 11/01/19 23:09 Last Admin: 11/01/19 23:27 Dose: 4 mg Sodium Chloride (Saline Flush) 10 ml FLUSH Q8HR PRN PRN Reason: keep vein open - Exam Quality Assessment: Supplemental Oxygen General: Alert, Oriented HEENT: Pupils Equal, Pupils Reactive, Mucous Membr. Moist/[place] Neck: Supple Lungs: Rales. No: Stridor Cardiovascular: Regular Rate, Regular Rhythm GI/Abdominal Exam: Normal Bowel Sounds, Soft, Non-Tender, No Distention, No Abnormal Bruit, No Mass Back Exam: Normal Inspection. No: CVA Tenderness (L), CVA Tenderness (R) Extremities: Normal Inspection, Normal Range of Motion, No Pedal Edema Skin: Warm, Dry, Intact Neurological: No New Focal Deficit Psy/Mental Status: Alert, Normal Affect, Normal Mood Physical Findings Comments:: Patient now on 1 L nasal cannula with oxygen saturation of 93% and respiratory rate 16-20. Sepsis Event Note - Evaluation Sepsis Screening Result: No Definite Risk - Focused Exam Vital Signs: Vital Signs Temp Pulse Resp BP Pulse Ox Pulse Ox Pulse Ox 11/02/19 06:30 97.8 F 75 16 109/57 L 99 93 L 11/02/19 04:00 95 11/02/19 03:30 96 11/02/19 03:04 98.5 F 91 20 150/72 H 91 L 11/02/19 02:30 91 L 11/02/19 01:30 96 11/02/19 01:00 91 L 91 L 11/01/19 23:35 98.1 F 96 16 155/82 H 89 L Date Exam was Performed: 11/02/19 Time Exam was Performed: 10:55 - Problem List Review Problem List Initiated/Reviewed/Updated: Yes - My Orders Last 24 Hours: My Active Orders 11/01/19 22:17 Chest 2V [CR] Stat 11/01/19 22:18 Oxygen Therapy Adult [Oxygen Therapy, ED] [RC] ASDIRECTED 11/01/19 22:19 Sodium Chloride 0.9% [Saline Flush] 10 ml FLUSH Q8HR PRN Peripheral IV Insertion Adult [OM.PC] Routine 11/01/19 23:30 CULTURE SPUTUM + SMEAR [RM] Stat 11/01/19 23:34 Saline Lock Insert [OM.PC] Routine Resuscitation Status Routine 11/01/19 23:35 Patient Status [ADT] Routine Oxygen Therapy [RC] PRN Vital Signs [RC] 0300,0700,1100,1500,1900,2300 11/01/19 23:52 Acetaminophen [Tylenol] 650 mg PEGTUBE Q4H PRN Loperamide [Imodium AD] 2 mg PEGTUBE QID PRN Ondansetron [Zofran ODT] 4 mg PEGTUBE Q6H PRN 11/02/19 08:00 Insulin Detemir 5 units SQ BID@ metFORMIN [Glucophage] 500 mg GTUBE BID@11/02/19 09:00 Liothyronine [CytomeL] 5 mcg GTUBE BID Multivitamin/Iron/Folic Acid [Centrum Complete Multivit] 1 tab PEGTUBE DAILY Sertraline [Zoloft] 75 mg PEGTUBE DAILY predniSONE 60 mg GTUBE DAILY 11/02/19 23:52 Sulfamethoxazole/Trimethoprim [Septra DS] 1 tab GTUBE MOTHSA - Assessment Assessment:: Patient continued to improve during the evening and is now on 1 L nasal cannula with oxygen saturation 93%. Breath sounds clear apically diminished basilar bilaterally with rales remaining right lower lobe. Tube feedings will begin again today and patient's home meds are reconciled. - Plan Plan:: Patient does have a history of hypothyroidism, so TSH and free T4 were ordered today along with urinalysis. Patient will be given Rocephin 1 g IV daily, CBC and CMP will be repeated tomorrow a.m. Patient will be followed closely.
[2019-11-02] MEDS: INSULIN DETEMIR SQ SCH (21:35)
[2019-11-02] MEDS: LIOTHYRONINE 5 MCG GTUBE SCH (21:38)
[2019-11-02] MEDS: cefTRIAXone 1 GM Vial IVPUSH SCH (23:10)
[2019-11-02] MEDS ORDERED: Sulfamethoxazole/Trimethoprim 800-160 MG Tab GTUBE SCH (23:52)
[2019-11-03] MEDS: Levothyroxine 25 MCG Tab GTUBE SCH (06:32)
[2019-11-03] MEDS: Levothyroxine 100 MCG Tab GTUBE SCH (06:33)
[2019-11-03 08:26] LABS: ANION GAP 11.3 mmol/L (5-15); CHLORIDE,CL 101 mmol/L (98-115); SODIUM,NA 142 mmol/L (136-145)
[2019-11-03] MEDS: INSULIN DETEMIR SQ SCH ×2 (09:17→21:04)
[2019-11-03] MEDS: Sodium Chloride 0.9% 10 ML Syringe FLUSH PRN (09:18)
[2019-11-03] MEDS: LIOTHYRONINE 5 MCG GTUBE SCH ×2 (09:21→21:05)
[2019-11-03] MEDS: Sertraline 50 MG Tab PEGTUBE SCH (09:21)
[2019-11-03] MEDS: Cholecalciferol (Vitamin D3) 25 MCG Tab PEGTUBE SCH (09:22)
[2019-11-03] MEDS: predniSONE 20 MG Tab GTUBE SCH (09:22)
[2019-11-03] MEDS: metFORMIN 500 MG Tab GTUBE SCH ×2 (09:22→17:21)
[2019-11-03] MEDS: Psyllium Husk Powder Sugar Free 5.85 GM Packet PEGTUBE SCH (09:23)
--- NOTE | 2019-11-03 12:02 | CR ---
[id number] RAD/RAD Chest PA And Lateral EXAM: FRONTAL AND LATERAL CHEST INDICATION: PNEUMONIA. COMPARISON: November 01, 2019. DISCUSSION: Mild bilateral lower lobe infiltrates are stable. Small bilateral pleural effusions, stable on the right and slightly increased on the left. Normal heart size. Underlying chronic obstructive pulmonary disease is suggested. IMPRESSION: 1. Stable mild bilateral lower lobe infiltrates, right greater than left. 2. Small bilateral pleural effusions are stable on the right and mildly increased on the left. Long Gaston MD 11/03/19 1200 Thank you for allowing us to participate in the care of your patient.
--- NOTE | 2019-11-03 13:13 | PCM.PN ---
- General Info Date of Service: 11/03/19 Admission Dx/Problem (Free Text): Patient is a 79-year-old female who presented to the emergency department last evening with a complaint of shortness of breath. Patient was found to have right lower lobe aspiration pneumonia and hypoxemia. Initially in the emergency department patient had difficulty with saturations in the mid 80s and required nonrebreather mask. By the time the patient left emergency department she was on nasal cannula, not tachypneic, and oxygen saturations in the low 90s. Patient is a resident at [address] [place] [address]. Her daughter is a nurse here at [facility]. Although patient is on tube feedings with occasional ice chips by mouth, it appears that she was given applesauce by mouth yesterday and aspirated. Patient became hypoxic and was transferred to the emergency department. Patient does have history of dysphasia and has a G- tube for feedings. Patient was afebrile and did not have leukocytosis. Patient was given 1 g Rocephin IV in the ER. At no time did patient complain of chest pain. Subjective Update: Improving. No oxygen and repeat x-ray shows resolving pneumonia Functional Status: Reports: Pain Controlled - Review of Systems General: Reports: No Symptoms HEENT: Reports: No Symptoms Pulmonary: Reports: No Symptoms Cardiovascular: Reports: No Symptoms Gastrointestinal: Reports: No Symptoms Genitourinary: Reports: No Symptoms Musculoskeletal: Reports: No Symptoms Skin: Reports: No Symptoms Neurological: Reports: No Symptoms Psychiatric: Reports: No Symptoms - Patient Data Vitals - Most Recent: Last Vital Signs Temp 97.2 F 11/03/19 10:58 Pulse 70 11/03/19 10:58 Resp 12 11/03/19 10:58 BP 114/58 L 11/03/19 10:58 Pulse Ox 96 11/03/19 10:58 Weight - Most Recent: 141 lb I&O - Last 24 Hours: Intake & Output 11/02/19 11/03/19 11/03/19 21:59 06:59 14:59 Intake Total 555 Output Total 200 Balance 355 Lab Results Last 24 Hours: Laboratory Results - last 24 hr 11/02/19 11/02/19 11/02/19 Range/Units 16:40 18:15 21:26 WBC (5.00-10.00) 10^3/uL RBC (3.80-5.50) 10^6/uL Hgb (12.0-16.0) g/dL Hct (37.0-47.0) % MCV (82.0-92.0) fL MCH (27.0-31.0) pg MCHC (32.0-36.0) g/dL RDW (11.5-14.5) % Plt Count (150-400) 10^3/uL MPV (7.4-10.4) fL Immature Gran % (Auto) (0.0-5.0) % Neut % (Auto) (50.0-70.0) % Lymph % (Auto) (20.0-40.0) % Andrews % (Auto) (2.0-8.0) % Eos % (Auto) (1.0-3.0) % Baso % (Auto) (0.0-1.0) % Immature Gran # (Auto) (0.00-0.50) 10^3/uL Neut # (Auto) (2.50-7.00) 10^3/uL Lymph # (Auto) (1.00-4.00) 10^3/uL Andrews # (Auto) (0.10-0.80) 10^3/uL Eos # (Auto) (0.10-0.30) 10^3/uL Baso # (Auto) (0.00-0.10) 10^3/uL Sodium (136-145) mmol/L Potassium (3.3-5.3) mmol/L Chloride (98-115) mmol/L Carbon Dioxide (21.0-32.0) mmol/L Anion Gap (5-15) mmol/L BUN (6-25) mg/dL Creatinine (0.51-1.17) mg/dL Est Cr Clr Drug Dosing mL/min Estimated GFR (MDRD) mL/min Glucose (75 - 99) mg/dL POC Glucose 286 H 153 H (74-106) mg/dl Calcium (8.7-10.3) mg/dL Total Bilirubin (0.2-1.0) mg/dL AST (15-37) U/L ALT (12-78) U/L Alkaline Phosphatase (46-116) IU/L Total Protein (6.4-8.2) g/dL Albumin (3.00-4.80) g/dL Free T4 (0.59-1.17) ng/dL TSH, Ultra Sensitive (0.340-4.820) uIU/mL Specimen Type Urinvoid Urine Color Yellow (YELLOW) Urine Appearance Clear (CLEAR) Urine pH 7.0 (5.0-9.0) Ur Specific [place] 1.010 (1.005-1.030) Urine Protein Negative (NEGATIVE) mg/dL Urine Glucose (UA) Negative (NEGATIVE) mg/dL Urine Ketones Negative (NEGATIVE) mg/dL Urine Occult Blood Trace-intact H (NEGATIVE) Urine Nitrite Negative (NEGATIVE) Urine Bilirubin Negative (NEGATIVE) Urine Urobilinogen 0.2 (0.2-1.0) E.U./dL Ur Leukocyte Esterase Negative (NEGATIVE) Urine RBC 0-5 (0-5) /HPF Urine WBC 0-5 (0-5) /HPF Ur Epithelial Cells Few /LPF Urine Bacteria Few (NONE TO FEW) /HPF 11/03/19 11/03/19 11/03/19 Range/Units 07:15 07:15 07:34 WBC 9.89 (5.00-10.00) 10^3/uL RBC 4.02 (3.80-5.50) 10^6/uL Hgb 12.2 (12.0-16.0) g/dL Hct 38.8 (37.0-47.0) % MCV 96.5 H (82.0-92.0) fL MCH 30.3 (27.0-31.0) pg MCHC 31.4 L (32.0-36.0) g/dL RDW 15.6 H (11.5-14.5) % Plt Count 354 (150-400) 10^3/uL MPV 9.6 (7.4-10.4) fL Immature Gran % (Auto) 0.2 (0.0-5.0) % Neut % (Auto) 78.3 H (50.0-70.0) % Lymph % (Auto) 15.3 L (20.0-40.0) % Andrews % (Auto) 5.7 (2.0-8.0) % Eos % (Auto) 0.4 L (1.0-3.0) % Baso % (Auto) 0.1 (0.0-1.0) % Immature Gran # (Auto) 0.02 (0.00-0.50) 10^3/uL Neut # (Auto) 7.75 H (2.50-7.00) 10^3/uL Lymph # (Auto) 1.51 (1.00-4.00) 10^3/uL Andrews # (Auto) 0.56 (0.10-0.80) 10^3/uL Eos # (Auto) 0.04 L (0.10-0.30) 10^3/uL Baso # (Auto) 0.01 (0.00-0.10) 10^3/uL Sodium 142 (136-145) mmol/L Potassium 4.1 (3.3-5.3) mmol/L Chloride 101 (98-115) mmol/L Carbon Dioxide 33.8 H (21.0-32.0) mmol/L Anion Gap 11.3 (5-15) mmol/L BUN 24 (6-25) mg/dL Creatinine 0.47 L (0.51-1.17) mg/dL Est Cr Clr Drug Dosing 87.34 mL/min Estimated GFR (MDRD) > 60 mL/min Glucose 119 H (75 - 99) mg/dL POC Glucose 123 H (74-106) mg/dl Calcium 9.3 (8.7-10.3) mg/dL Total Bilirubin 0.4 (0.2-1.0) mg/dL AST 148 H (15-37) U/L ALT 240 H (12-78) U/L Alkaline Phosphatase 62 (46-116) IU/L Total Protein 6.5 (6.4-8.2) g/dL Albumin 2.83 L (3.00-4.80) g/dL Free T4 0.89 (0.59-1.17) ng/dL TSH, Ultra Sensitive 20.190 H (0.340-4.820) uIU/mL Specimen Type Urine Color (YELLOW) Urine Appearance (CLEAR) Urine pH (5.0-9.0) Ur Specific [place] (1.005-1.030) Urine Protein (NEGATIVE) mg/dL Urine Glucose (UA) (NEGATIVE) mg/dL Urine Ketones (NEGATIVE) mg/dL Urine Occult Blood (NEGATIVE) Urine Nitrite (NEGATIVE) Urine Bilirubin (NEGATIVE) Urine Urobilinogen (0.2-1.0) E.U./dL Ur Leukocyte Esterase (NEGATIVE) Urine RBC (0-5) /HPF Urine WBC (0-5) /HPF Ur Epithelial Cells /LPF Urine Bacteria (NONE TO FEW) /HPF 11/03/19 Range/Units 12:02 WBC (5.00-10.00) 10^3/uL RBC (3.80-5.50) 10^6/uL Hgb (12.0-16.0) g/dL Hct (37.0-47.0) % MCV (82.0-92.0) fL MCH (27.0-31.0) pg MCHC (32.0-36.0) g/dL RDW (11.5-14.5) % Plt Count (150-400) 10^3/uL MPV (7.4-10.4) fL Immature Gran % (Auto) (0.0-5.0) % Neut % (Auto) (50.0-70.0) % Lymph % (Auto) (20.0-40.0) % Andrews % (Auto) (2.0-8.0) % Eos % (Auto) (1.0-3.0) % Baso % (Auto) (0.0-1.0) % Immature Gran # (Auto) (0.00-0.50) 10^3/uL Neut # (Auto) (2.50-7.00) 10^3/uL Lymph # (Auto) (1.00-4.00) 10^3/uL Andrews # (Auto) (0.10-0.80) 10^3/uL Eos # (Auto) (0.10-0.30) 10^3/uL Baso # (Auto) (0.00-0.10) 10^3/uL Sodium (136-145) mmol/L Potassium (3.3-5.3) mmol/L Chloride (98-115) mmol/L Carbon Dioxide (21.0-32.0) mmol/L Anion Gap (5-15) mmol/L BUN (6-25) mg/dL Creatinine (0.51-1.17) mg/dL Est Cr Clr Drug Dosing mL/min Estimated GFR (MDRD) mL/min Glucose (75 - 99) mg/dL POC Glucose 155 H (74-106) mg/dl Calcium (8.7-10.3) mg/dL Total Bilirubin (0.2-1.0) mg/dL AST (15-37) U/L ALT (12-78) U/L Alkaline Phosphatase (46-116) IU/L Total Protein (6.4-8.2) g/dL Albumin (3.00-4.80) g/dL Free T4 (0.59-1.17) ng/dL TSH, Ultra Sensitive (0.340-4.820) uIU/mL Specimen Type Urine Color (YELLOW) Urine Appearance (CLEAR) Urine pH (5.0-9.0) Ur Specific [place] (1.005-1.030) Urine Protein (NEGATIVE) mg/dL Urine Glucose (UA) (NEGATIVE) mg/dL Urine Ketones (NEGATIVE) mg/dL Urine Occult Blood (NEGATIVE) Urine Nitrite (NEGATIVE) Urine Bilirubin (NEGATIVE) Urine Urobilinogen (0.2-1.0) E.U./dL Ur Leukocyte Esterase (NEGATIVE) Urine RBC (0-5) /HPF Urine WBC (0-5) /HPF Ur Epithelial Cells /LPF Urine Bacteria (NONE TO FEW) /HPF Med Orders - Current: Current Medications Acetaminophen (Tylenol) 650 mg PEGTUBE Q4H PRN PRN Reason: Pain Last Admin: 11/02/19 19:22 Dose: 650 mg Ceftriaxone Sodium (Rocephin) 1 gm IVPUSH Q24H [facility] Last Admin: 11/02/19 23:10 Dose: 1 gm Cholecalciferol (Vitamin D3) 25 mcg PEGTUBE DAILY [facility] Last Admin: 11/03/19 09:22 Dose: 25 mcg Levothyroxine Sodium (Synthroid) 200 mcg GTUBE ACBREAKFAST [facility] Last Admin: 11/03/19 06:33 Dose: 200 mcg Levothyroxine Sodium (Levothyroxine) 25 mcg GTUBE ACBREAKFAST [facility] Last Admin: 11/03/19 06:32 Dose: 25 mcg Liothyronine Sodium (Cytomel) 5 mcg GTUBE BID [facility] Last Admin: 11/03/19 09:21 Dose: 5 mcg Metformin HCl (Glucophage) 500 mg GTUBE BID@ [facility] Last Admin: 11/03/19 09:22 Dose: 500 mg Non-Formulary Medication (Loperamide [Imodium Ad]) 2 mg PEGTUBE QID PRN PRN Reason: Diarrhea Non-Formulary Medication (Multivitamin/Iron/Folic Acid [Centrum Complete Multivit]) 1 tab PEGTUBE DAILY [facility] Last Admin: 11/02/19 11:20 Dose: Not Given Insulin Detemir ( Levemir) Pen Own Med 0 units SQ BID@ [facility] Last Admin: 11/03/19 09:17 Dose: 5 units Ondansetron HCl (Zofran Odt) 4 mg PEGTUBE Q6H PRN PRN Reason: Nausea Prednisone (Prednisone) 60 mg GTUBE DAILY [facility] Last Admin: 11/03/19 09:22 Dose: 60 mg Psyllium Husk (Metamucil Sugar Free) 1 pkt PEGTUBE DAILY [facility] Last Admin: 11/03/19 09:23 Dose: 1 pkt Sertraline HCl (Zoloft) 75 mg PEGTUBE DAILY [facility] Last Admin: 11/03/19 09:21 Dose: 75 mg Sodium Chloride (Saline Flush) 10 ml FLUSH Q8HR PRN PRN Reason: keep vein open Last Admin: 11/03/19 09:18 Dose: 10 ml Trimethoprim/Sulfamethoxazole (Septra Ds) 1 tab GTUBE MOTHSA [facility] Last Admin: 11/02/19 23:10 Dose: 1 tab Discontinued Medications Ceftriaxone Sodium (Rocephin) 1 gm IVPUSH ONETIME ONE Stop: 11/01/19 23:53 Last Admin: 11/01/19 23:58 Dose: 1 gm Sodium Chloride (Normal Saline) 1,000 mls @ 125 mls/hr IV ASDIRECTED [facility] Last Admin: 11/01/19 23:52 Dose: 125 mls/hr Levothyroxine Sodium (Synthroid) 100 mcg GTUBE ACBREAKFAST [facility] Last Admin: 11/02/19 09:37 Dose: 100 mcg Levothyroxine Sodium (Synthroid) 100 mcg PO ONETIME ONE Stop: 11/02/19 09:46 Last Admin: 11/02/19 10:27 Dose: 100 mcg Liothyronine Sodium (Cytomel) 5 mcg GTUBE BID [facility] Last Admin: 11/02/19 11:21 Dose: Not Given Non-Formulary Medication (Insulin Detemir) 5 units SQ BID@ [facility] Last Admin: 11/02/19 09:41 Dose: Not Given Ondansetron HCl (Zofran) 4 mg IVPUSH ONETIME ONE Stop: 11/01/19 23:09 Last Admin: 11/01/19 23:27 Dose: 4 mg Sodium Chloride (Saline Flush) 10 ml FLUSH Q8HR PRN PRN Reason: keep vein open - Exam Quality Assessment: No: Supplemental Oxygen General: Alert, Oriented HEENT: Pupils Equal, Pupils Reactive, Mucous Membr. Moist/[place] Neck: Supple Lungs: Normal Respiratory Effort, Rales (Minimal right lower lobe inspiratory crackles) Cardiovascular: Regular Rate, Regular Rhythm GI/Abdominal Exam: Normal Bowel Sounds, Soft, Non-Tender Back Exam: Normal Inspection Extremities: Normal Inspection, No Pedal Edema Skin: Warm, Dry, Intact Neurological: No New Focal Deficit Psy/Mental Status: Alert, Normal Affect Sepsis Event Note - Evaluation Sepsis Screening Result: No Definite Risk - Focused Exam Vital Signs: Vital Signs Temp Pulse Resp BP Pulse Ox Pulse Ox 11/03/19 10:58 97.2 F 70 12 114/58 L 96 11/03/19 06:24 97.2 F 69 18 108/61 95 11/03/19 06:00 93 L 11/03/19 03:00 96.4 F L 69 18 109/53 L 94 L Date Exam was Performed: 11/03/19 Time Exam was Performed: 13:13 - Problem List Review Problem List Initiated/Reviewed/Updated: Yes - My Orders Last 24 Hours: My Active Orders 11/02/19 11:31 Blood Glucose Check, Bedside [RC] 0730,1130,1730,2200 11/02/19 11:42 Tube Feeding [Enteral Feedings] [RC] 0700,1900 11/02/19 13:30 Consult to Case Management/Airplane Patrol Pilot [CONS] Routine 11/02/19 14:51 Communication Order [RC] 1630,1730 11/02/19 14:53 Communication Order [RC] 2100,0100,0500 11/02/19 15:06 Gastric Residual Measurement [OM.PC] Routine 11/02/19 15:07 Communication Order [RC] 0900,2100 11/02/19 20:00 Insulin Detemir 0 units SQ BID@11/02/19 21:00 Liothyronine [CytomeL] 5 mcg GTUBE BID 11/02/19 23:00 cefTRIAXone [Rocephin] 1 gm IVPUSH Q24H 11/02/19 23:52 Sulfamethoxazole/Trimethoprim [Septra DS] 1 tab GTUBE MOTHSA 11/03/19 07:15 FREE T3 [REF] Routine - Assessment Assessment:: Halima looks much improved and states she feels much better. She is currently off oxygen. Oxygen saturation low 90s, mild right lower lobe late crackles on inspiration. Chest x-ray performed today shows mild improvement of right lower lobe pneumonia. Her daughter is at bedside and agrees mother looks much better. Patient will be seen by Dr. Sarkar in the a.m. for consideration of discharge. Rocephin will be given in a.m. - Plan Plan:: As above
[2019-11-03] MEDS: cefTRIAXone 1 GM Vial IVPUSH SCH (23:10)
[2019-11-04] MEDS: Levothyroxine 25 MCG Tab GTUBE SCH ×2 (06:07→07:17)
[2019-11-04] MEDS: Levothyroxine 100 MCG Tab GTUBE SCH ×2 (06:08→07:17)
[2019-11-04] MEDS ORDERED: cefTRIAXone 1 GM Vial IVPUSH ONE (07:00)
[2019-11-04] MEDS ORDERED: cefTRIAXone 1 GM Vial IM ONE (07:00)
[2019-11-04 07:54] LABS: ANION GAP 11.1 mmol/L (5-15); CHLORIDE,CL 102 mmol/L (98-115); SODIUM,NA 144 mmol/L (136-145)
--- NOTE | 2019-11-04 08:56 | PCM.DCSUM1 ---
Discharge Summary - Hospital Course Free Text/Narrative:: Admission Date: 11/01/2019 Discharge Date: 11/04/2019 Disposition: retirement facility, [facility]. CODE STATUS: DNR/DNI Admission Diagnoses: Aspiration Pneumonia Diabetes Mellitus Hypothyroidism Weakness Dysphagia Discharge Diagnoses: Aspiration Pneumonia, improving, to remain NPO. Diabetes Mellitus, adequately controlled. Hypothyroidism, Elevated TSH but normal T4, repeat labs in 6 weeks. Weakness, Continue PT Dysphagia, Continue tube feeds New Meds at Discharge: Augmentin 875/125 mg tabs, 1 tab per G-tube BID x 10 days Patient is a 79-year-old female who presented to the emergency department on 10/31 with a complaint of shortness of breath. Patient was found to have right lower lobe aspiration pneumonia and hypoxemia. Initially in the emergency department patient had difficulty with saturations in the mid 80s and required nonrebreather mask. By the time the patient left emergency department she was on nasal cannula, not tachypneic, and oxygen saturations in the low 90s. Patient is a resident at [facility]. Her daughter is a nurse here at [facility]. Although patient is on tube feedings with occasional ice chips by mouth, it appears that she was given applesauce by mouth from the speech therapist and aspirated. Patient became hypoxic and was transferred to the emergency department. Patient does have history of dysphasia and has a G-tube for feedings since August of 2019. Patient was afebrile and did not have leukocytosis. Patient was given 1 g Rocephin IV in the ER. At no time did patient complain of chest pain. She did will during her hospitalization. She was able to be weaned off O2. She feels overall much better. She is ready to discharge. She will be discharged on Augmentin 875/125 mg tabs, one tab PO BID x 10 days for her aspiration pneumonia. Diagnosis: Stroke: No Modified Henderson Scale: No Signif.Disability Despite Sympt.Able to Carry Out Usual Act./Duties Modified Shady Scale Score: 1 - Discharge Data Discharge Date: 11/04/19 Discharge Disposition: DC/Tfer to SNF 03 Condition: Good - Referral to Home Health Primary Care Physician: Annette Talbert MD - Patient Summary/Data Consults: Consultations 11/02/19 13:30 Consult to Case Management/Collector [CONS] Routine - Patient Instructions Diet: NPO Diet, Other: Continue tube feeds - Discharge Plan *PRESCRIPTION DRUG MONITORING PROGRAM REVIEWED*: Not Applicable *COPY OF PRESCRIPTION DRUG MONITORING REPORT IN PATIENT SHAMEKA: Not Applicable Prescriptions/Med Rec: Amoxicillin/Potassium Clav [Augmentin 875-125 Tablet] 1 each GTUBE BID 10 Days # 20 tablet Home Medications: Home Meds Levothyroxine 125 mcg PEGTUBE ACBREAKFAST 04/09/18 [History] metFORMIN [Glucophage] 500 mg PEGTUBE BID@04/09/18 [History] Acetaminophen [Tylenol] 650 mg PEGTUBE Q4H PRN 11/01/19 [History] Cholecalciferol (Vitamin D3) [Vitamin D3] 1,000 unit PEGTUBE DAILY 11/01/19 [ History] Insulin Detemir [Levemir] 5 units SQ BID@,11/01/19 [History] Levothyroxine [Synthroid] 100 mcg PEGTUBE ACBREAKFAST 11/01/19 [History] Liothyronine [Cytomel] 5 mcg PEGTUBE BID 11/01/19 [History] Loperamide [Imodium AD] 2 mg PEGTUBE QID PRN 11/01/19 [History] Multivitamin/Iron/Folic Acid [Centrum Complete Multivit] 1 tab PEGTUBE DAILY 02/14 [History] Ondansetron [Zofran ODT] 4 mg PEGTUBE Q6H PRN 11/01/19 [History] Psyllium Husk [Metamucil] 660 gm PEGTUBE DAILY 11/01/19 [History] Sertraline HCl 75 mg PEGTUBE DAILY 11/01/19 [History] Sulfamethoxazole/Trimethoprim [Bactrim Ds Tablet] 1 tab PEGTUBE MOTHSA 11/01/19 [History] predniSONE [Prednisone] 60 mg PEGTUBE DAILY 11/01/19 [History] Non-Formulary Medication [NF Drug] 30 ml PEGTUBE ASDIRECTED 11/02/19 [History] Non-Formulary Medication [NF Drug] 60 ml PEGTUBE ASDIRECTED 11/02/19 [History] Non-Formulary Medication [NF Drug] 237 ml PEGTUBE ASDIRECTED 11/02/19 [History] Amoxicillin/Potassium Clav [Augmentin 875-125 Tablet] 1 each GTUBE BID 10 Days # 20 tablet 11/04/19 [Rx] Forms: ED Department Discharge Referrals: Annette Talbert MD [Primary Care Provider] - - Discharge Summary/Plan Comment DC Time >30 min.: No - General Info Date of Service: 11/04/19 Admission Dx/Problem (Free Text: Patient is a 79-year-old female who presented to the emergency department last evening with a complaint of shortness of breath. Patient was found to have right lower lobe aspiration pneumonia and hypoxemia. Initially in the emergency department patient had difficulty with saturations in the mid 80s and required nonrebreather mask. By the time the patient left emergency department she was on nasal cannula, not tachypneic, and oxygen saturations in the low 90s. Patient is a resident at [address] [place] [address]. Her daughter is a nurse here at [facility]. Although patient is on tube feedings with occasional ice chips by mouth, it appears that she was given applesauce by mouth yesterday and aspirated. Patient became hypoxic and was transferred to the emergency department. Patient does have history of dysphasia and has a G- tube for feedings. Patient was afebrile and did not have leukocytosis. Patient was given 1 g Rocephin IV in the ER. At no time did patient complain of chest pain. - Patient Data Vitals - Most Recent: Last Vital Signs Temp 97.4 F 11/04/19 06:14 Pulse 71 11/04/19 06:14 Resp 16 11/04/19 06:14 BP 134/66 11/04/19 06:14 Pulse Ox 94 L 11/04/19 06:14 Weight - Most Recent: 141 lb I&O - Last 24 hours: Intake & Output 11/03/19 11/04/19 11/04/19 22:59 06:59 14:59 Intake Total 325 90 Output Total 900 Balance 325 -810 Lab Results - Last 24 hrs: Laboratory Results - last 24 hr 11/03/19 11/03/19 11/03/19 Range/Units 07:34 12:02 17:23 WBC (5.00-10.00) 10^3/uL RBC (3.80-5.50) 10^6/uL Hgb (12.0-16.0) g/dL Hct (37.0-47.0) % MCV (82.0-92.0) fL MCH (27.0-31.0) pg MCHC (32.0-36.0) g/dL RDW (11.5-14.5) % Plt Count (150-400) 10^3/uL MPV (7.4-10.4) fL Immature Gran % (Auto) (0.0-5.0) % Neut % (Auto) (50.0-70.0) % Lymph % (Auto) (20.0-40.0) % Dickens % (Auto) (2.0-8.0) % Eos % (Auto) (1.0-3.0) % Baso % (Auto) (0.0-1.0) % Immature Gran # (Auto) (0.00-0.50) 10^3/uL Neut # (Auto) (2.50-7.00) 10^3/uL Lymph # (Auto) (1.00-4.00) 10^3/uL Dickens # (Auto) (0.10-0.80) 10^3/uL Eos # (Auto) (0.10-0.30) 10^3/uL Baso # (Auto) (0.00-0.10) 10^3/uL Sodium (136-145) mmol/L Potassium (3.3-5.3) mmol/L Chloride (98-115) mmol/L Carbon Dioxide (21.0-32.0) mmol/L Anion Gap (5-15) mmol/L BUN (6-25) mg/dL Creatinine (0.51-1.17) mg/dL Est Cr Clr Drug Dosing mL/min Estimated GFR (MDRD) mL/min Glucose (75 - 99) mg/dL POC Glucose 123 H 155 H 146 H (74-106) mg/dl Calcium (8.7-10.3) mg/dL 11/03/19 11/04/19 11/04/19 Range/Units 21:02 07:05 07:05 WBC 9.39 (5.00-10.00) 10^3/uL RBC 3.89 (3.80-5.50) 10^6/uL Hgb 11.7 L (12.0-16.0) g/dL Hct 37.4 (37.0-47.0) % MCV 96.1 H (82.0-92.0) fL MCH 30.1 (27.0-31.0) pg MCHC 31.3 L (32.0-36.0) g/dL RDW 15.7 H (11.5-14.5) % Plt Count 358 (150-400) 10^3/uL MPV 9.6 (7.4-10.4) fL Immature Gran % (Auto) 0.1 (0.0-5.0) % Neut % (Auto) 73.0 H (50.0-70.0) % Lymph % (Auto) 19.6 L (20.0-40.0) % Dickens % (Auto) 6.8 (2.0-8.0) % Eos % (Auto) 0.3 L (1.0-3.0) % Baso % (Auto) 0.2 (0.0-1.0) % Immature Gran # (Auto) 0.01 (0.00-0.50) 10^3/uL Neut # (Auto) 6.85 (2.50-7.00) 10^3/uL Lymph # (Auto) 1.84 (1.00-4.00) 10^3/uL Dickens # (Auto) 0.64 (0.10-0.80) 10^3/uL Eos # (Auto) 0.03 L (0.10-0.30) 10^3/uL Baso # (Auto) 0.02 (0.00-0.10) 10^3/uL Sodium 144 (136-145) mmol/L Potassium 4.1 (3.3-5.3) mmol/L Chloride 102 (98-115) mmol/L Carbon Dioxide 35.0 H (21.0-32.0) mmol/L Anion Gap 11.1 (5-15) mmol/L BUN 26 H (6-25) mg/dL Creatinine 0.46 L (0.51-1.17) mg/dL Est Cr Clr Drug Dosing 89.23 mL/min Estimated GFR (MDRD) > 60 mL/min Glucose 90 (75 - 99) mg/dL POC Glucose 151 H (74-106) mg/dl Calcium 9.4 (8.7-10.3) mg/dL Med Orders - Current: Current Medications Acetaminophen (Tylenol) 650 mg PEGTUBE Q4H PRN PRN Reason: Pain Last Admin: 11/02/19 19:22 Dose: 650 mg Ceftriaxone Sodium (Rocephin) 1 gm IVPUSH Q24H [facility] Last Admin: 11/03/19 23:10 Dose: 1 gm Cholecalciferol (Vitamin D3) 25 mcg PEGTUBE DAILY [facility] Last Admin: 11/03/19 09:22 Dose: 25 mcg Levothyroxine Sodium (Synthroid) 200 mcg GTUBE ACBREAKFAST [facility] Last Admin: 11/04/19 07:17 Dose: Not Given Levothyroxine Sodium (Levothyroxine) 25 mcg GTUBE ACBREAKFAST [facility] Last Admin: 11/04/19 07:17 Dose: Not Given Liothyronine Sodium (Cytomel) 5 mcg GTUBE BID [facility] Last Admin: 11/03/19 21:05 Dose: 5 mcg Metformin HCl (Glucophage) 500 mg GTUBE BID@ [facility] Last Admin: 11/03/19 17:21 Dose: 500 mg Non-Formulary Medication (Loperamide [Imodium Ad]) 2 mg PEGTUBE QID PRN PRN Reason: Diarrhea Non-Formulary Medication (Multivitamin/Iron/Folic Acid [Centrum Complete Multivit]) 1 tab PEGTUBE DAILY [facility] Last Admin: 11/02/19 11:20 Dose: Not Given Insulin Detemir ( Levemir) Pen Own Med 0 units SQ BID@ [facility] Last Admin: 11/03/19 21:04 Dose: 5 units Ondansetron HCl (Zofran Odt) 4 mg PEGTUBE Q6H PRN PRN Reason: Nausea Prednisone (Prednisone) 60 mg GTUBE DAILY [facility] Last Admin: 11/03/19 09:22 Dose: 60 mg Psyllium Husk (Metamucil Sugar Free) 1 pkt PEGTUBE DAILY [facility] Last Admin: 11/03/19 09:23 Dose: 1 pkt Sertraline HCl (Zoloft) 75 mg PEGTUBE DAILY [facility] Last Admin: 11/03/19 09:21 Dose: 75 mg Sodium Chloride (Saline Flush) 10 ml FLUSH Q8HR PRN PRN Reason: keep vein open Last Admin: 11/03/19 09:18 Dose: 10 ml Trimethoprim/Sulfamethoxazole (Septra Ds) 1 tab GTUBE MOTHSA [facility] Last Admin: 11/02/19 23:10 Dose: 1 tab Discontinued Medications Ceftriaxone Sodium (Rocephin) 1 gm IVPUSH ONETIME ONE Stop: 11/01/19 23:53 Last Admin: 11/01/19 23:58 Dose: 1 gm Ceftriaxone Sodium (Rocephin) 1 gm IM ONETIME ONE Stop: 11/04/19 07:01 Ceftriaxone Sodium (Rocephin) 1 gm IVPUSH ONETIME ONE Stop: 11/04/19 07:01 Last Admin: 11/04/19 06:15 Dose: 1 gm Sodium Chloride (Normal Saline) 1,000 mls @ 125 mls/hr IV ASDIRECTED [facility] Last Admin: 11/01/19 23:52 Dose: 125 mls/hr Levothyroxine Sodium (Synthroid) 100 mcg GTUBE ACBREAKFAST [facility] Last Admin: 11/02/19 09:37 Dose: 100 mcg Levothyroxine Sodium (Synthroid) 100 mcg PO ONETIME ONE Stop: 11/02/19 09:46 Last Admin: 11/02/19 10:27 Dose: 100 mcg Liothyronine Sodium (Cytomel) 5 mcg GTUBE BID [facility] Last Admin: 11/02/19 11:21 Dose: Not Given Non-Formulary Medication (Insulin Detemir) 5 units SQ BID@08,20 [facility] Last Admin: 11/02/19 09:41 Dose: Not Given Ondansetron HCl (Zofran) 4 mg IVPUSH ONETIME ONE Stop: 11/01/19 23:09 Last Admin: 11/01/19 23:27 Dose: 4 mg Sodium Chloride (Saline Flush) 10 ml FLUSH Q8HR PRN PRN Reason: keep vein open - Exam General: Reports: Alert, Oriented, Cooperative, No Acute Distress Lungs: Reports: Clear to Auscultation, Normal Respiratory Effort Cardiovascular: Reports: Regular Rate, Regular Rhythm, No Murmurs GI/Abdominal Exam: Normal Bowel Sounds
[2019-11-04] MEDS: LIOTHYRONINE 5 MCG GTUBE SCH (09:00)
[2019-11-04] MEDS: Psyllium Husk Powder Sugar Free 5.85 GM Packet PEGTUBE SCH (09:01)
[2019-11-04] MEDS: Cholecalciferol (Vitamin D3) 25 MCG Tab PEGTUBE SCH (09:02)
[2019-11-04] MEDS: Sertraline 50 MG Tab PEGTUBE SCH (09:02)
[2019-11-04] MEDS: predniSONE 20 MG Tab GTUBE SCH (09:03)
[2019-11-04] MEDS: metFORMIN 500 MG Tab GTUBE SCH (09:03)
[2019-11-04] MEDS: INSULIN DETEMIR SQ SCH (09:05)
== END 2019-11-04 10:45 | DRG 179 ==
LOC: KA.ED 21:43 → UNDOADMIN 11-02 00:20 → KA.MS 11-02 00:20 → UNDODISIN 11-04 10:45
PROVIDERS: ADMIT Physician Assistant Surgical; ATTEND Internal Medicine
DX: J69.0 Pneumonitis due to inhalation of food and vomit (principal); H54.7 Unspecified visual loss; I10 Essential (primary) hypertension; K21.9 Gastro-esophageal reflux disease without esophagitis; M54.9 Dorsalgia, unspecified; K44.9 Diaphragmatic hernia without obstruction or gangrene; R32 Unspecified urinary incontinence; G89.29 Other chronic pain; F41.9 Anxiety disorder, unspecified; Z66 Do not resuscitate; E13.9 Other specified diabetes mellitus without complications; E20.9 Hypoparathyroidism, unspecified; F32.9 Major depressive disorder, single episode, unspecified; H26.9 Unspecified cataract; Z93.1 Gastrostomy status; E11.9 Type 2 diabetes mellitus without complications; Z96.649 Presence of unspecified artificial hip joint; E89.0 Postprocedural hypothyroidism; R09.02 Hypoxemia; Z88.6 Allergy status to analgesic agent; E03.9 Hypothyroidism, unspecified; Z79.890 Hormone replacement therapy; Z79.4 Long term (current) use of insulin; Z79.899 Other long term (current) drug therapy; Z90.89 Acquired absence of other organs; Z90.49 Acquired absence of other specified parts of digestive tract; Z90.710 Acquired absence of both cervix and uterus; Z90.79 Acquired absence of other genital organ(s); Z90.721 Acquired absence of ovaries, unilateral; Z88.5 Allergy status to narcotic agent; Z99.81 Dependence on supplemental oxygen; G47.30 Sleep apnea, unspecified
CPT/HCPCS: 36415; 71046; 80048; 80053; 81001; 82962; 84439; 84443; 84481; 85025; 87070; 87205; 87804; 96374; 99285-25; A9270-GY; J0696; J2405; J7030

== ENCOUNTER 2019-12-24 15:42 | Emergency (ER) | payer MEDICARE, MEDICAID ==
--- NOTE | 2019-12-24 16:13 | EDM.PDOC ---
ED HPI GENERAL MEDICAL PROBLEM - General Chief Complaint: Gastrointestinal Problem Stated Complaint: VOMITING, ABD CRAMPS Time Seen by Provider: 12/24/19 15:55 Source of Information: Reports: Patient, Provider History Limitations: Reports: No Limitations - History of Present Illness INITIAL COMMENTS - FREE TEXT/NARRATIVE: Patient presents from [place] with abdominal cramping, distension and vomiting. She says the pain is 2-3 now and she doesn't need pain meds at the moment. She says yesterday she had 3 good, normal bowel movements with the last one shortly after noon. She has vomited twice; once around 0400 and again about 1400. She hasn't passed any stool or gas today. She went to [facility] and had an x- ray that shows miltiple dilated loops of bowel with air-fluid levels. Apparent pneumatosis with loop of bowel in right abdomen. Radiologist advised getting CT to exclude bowel obstruction, pneumatosis and pneumoperitoneum. Abdominal Pain Score (Numeric/FACES): 3 - Related Data Allergies Allergy/AdvReac Type Severity Reaction Status Date / Time morphine Allergy Nausea Verified 12/24/19 16:17 Home Meds: Home Meds Levothyroxine 125 mcg PEGTUBE ACBREAKFAST 04/09/18 [History] metFORMIN [Glucophage] 500 mg PEGTUBE BID@04/09/18 [History] Acetaminophen [Tylenol] 650 mg PEGTUBE Q4H PRN 11/01/19 [History] Cholecalciferol (Vitamin D3) [Vitamin D3] 1,000 unit PEGTUBE DAILY 11/01/19 [ History] Insulin Detemir [Levemir] 5 units SQ BID@11/01/19 [History] Levothyroxine [Synthroid] 100 mcg PEGTUBE ACBREAKFAST 11/01/19 [History] Liothyronine [Cytomel] 5 mcg PEGTUBE BID 11/01/19 [History] Loperamide [Imodium AD] 2 mg PEGTUBE QID PRN 11/01/19 [History] Multivitamin/Iron/Folic Acid [Centrum Complete Multivit] 1 tab PEGTUBE DAILY 02/14 [History] Ondansetron [Zofran ODT] 4 mg PEGTUBE Q6H PRN 11/01/19 [History] Psyllium Husk [Metamucil] 660 gm PEGTUBE DAILY 11/01/19 [History] Sertraline HCl 75 mg PEGTUBE DAILY 11/01/19 [History] Sulfamethoxazole/Trimethoprim [Bactrim Ds Tablet] 1 tab PEGTUBE MOTHSA 11/01/19 [History] predniSONE [Prednisone] 60 mg PEGTUBE DAILY 11/01/19 [History] Non-Formulary Medication [NF Drug] 30 ml PEGTUBE ASDIRECTED 11/02/19 [History] Non-Formulary Medication [NF Drug] 60 ml PEGTUBE ASDIRECTED 11/02/19 [History] Non-Formulary Medication [NF Drug] 237 ml PEGTUBE ASDIRECTED 11/02/19 [History] Amoxicillin/Potassium Clav [Augmentin 875-125 Tablet] 1 each GTUBE BID 10 Days # 20 tablet 11/04/19 [Rx] Past Medical History HEENT History: Reports: Cataract, Impaired Vision Cardiovascular History: Reports: High Cholesterol, Hypertension Respiratory History: Reports: Pneumonia, Recurrent, Sleep Apnea Gastrointestinal History: Reports: Diverticulosis, GERD, Hiatal Hernia Genitourinary History: Reports: Renal Calculus, Urinary Incontinence, UTI, Recurrent 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: , 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 Musculoskeletal History: Reports: Back Pain, Chronic, Fracture Neurological History: Reports: Concussion Psychiatric History: Reports: Anxiety, Depression, Panic Attack Endocrine/Metabolic History: Reports: Diabetes Mellitus, Type 3c, Hypoparathyroidism, Hypothyroidism Dermatologic History: Reports: Decubitus Ulcer - Infectious Disease History Infectious Disease History: Reports: Chicken Pox, Measles, Mumps - Past Surgical History Head Surgeries/Procedures: Reports: None HEENT Surgical History: Reports: Tonsillectomy Respiratory Surgical History: Reports: None GI Surgical History: Reports: Appendectomy, Cholecystectomy, Colonoscopy, EGD, Polypectomy Female Surgical History: Reports: Breast Biopsy, Hysterectomy, Lithotripsy/ ESWL, Salpingo-Oophorectomy, Other (See Below) Other Female Surgeries/Procedures: bladder repair Endocrine Surgical History: Reports: Parathyroidectomy, Thyroidectomy, Other ( See Below) Other Endocrine Surgeries/Procedures: Removed half of thyroid Neurological Surgical History: Reports: None Musculoskeletal Surgical History: Reports: Hip Replacement Dermatological Surgical History: Reports: None Social & Family History - Family History Family Medical History: Noncontributory - Caffeine Use Caffeine Use: Reports: None ED ROS GENERAL - Review of Systems Review Of Systems: See Below Constitutional: Reports: Fatigue. Denies: Fever, Chills, Malaise, Weakness HEENT: Denies: Ear Pain, Throat Pain, Vision Change Respiratory: Denies: Shortness of Breath, Cough Cardiovascular: Denies: Chest Pain, Lightheadedness, Syncope GI/Abdominal: Reports: Abdominal Pain, Distension, Nausea, Vomiting, Other (She has a gastric feeding tube). Denies: Black Stool, Bloody Stool : Denies: Dysuria, Flank Pain Musculoskeletal: Reports: No Symptoms Skin: Denies: Cyanosis, Jaundice, Mottled, Pallor, Diaphoresis Neurological: Denies: Confusion, Dizziness, Headache, Seizure, Syncope, Trouble Speaking, Difficulty Walking Psychiatric: Denies: Agitation, Anxiety, Confusion ED EXAM, GI/ABD - Physical Exam Exam: See Below Exam Limited By: No Limitations General Appearance: Alert, WD/WN, No Apparent Distress Eyes: Bilateral: Normal Appearance, EOMI Ears: Normal External Exam, Hearing Grossly Normal Nose: Normal Inspection, No Blood Throat/Mouth: Normal Inspection, Normal Lips, Normal Voice, No Airway Compromise Head: Atraumatic, Normocephalic Neck: Normal Inspection, Full Range of Motion Respiratory/Chest: No Respiratory Distress, Lungs Clear, Normal Breath Sounds, No Accessory Muscle Use Cardiovascular: Regular Rate, Rhythm, No Murmur GI/Abdominal Exam: Non-Tender, Distended (moderate), Abnormal Bowel Sounds ( hyperactive). No: Guarding, Rigid Back Exam: Normal Inspection, Full Range of Motion. No: CVA Tenderness (L), CVA Tenderness (R) Extremities: Normal Inspection, Normal Range of Motion, Non-Tender, No Pedal Edema Neurological: Alert, Oriented, Normal Cognition, No Motor/Sensory Deficits Psychiatric: Normal Affect, Normal Mood Skin Exam: Warm, Dry, Intact, Normal Color, No Rash Course - Vital Signs Last Recorded V/S: Last Vital Signs Temp 97.9 F 12/24/19 16:03 Pulse 80 12/24/19 16:03 Resp 20 12/24/19 16:03 BP 143/58 H 12/24/19 16:03 Pulse Ox 94 L 12/24/19 16:03 - Orders/Labs/Meds Orders: Active Orders 24 hr Category Date Time Status Lactated Ringers [Ringers, Lactated] 1,000 ml Med 12/24/19 18:15 Ordered IV ASDIRECTED Sodium Chloride 0.9% [Normal Saline] 50 ml Med 12/24/19 17:00 Active IV ASDIRECTED Medication Orders Sodium Chloride (Normal Saline) 50 mls @ 200 mls/hr IV ASDIRECTED [facility] Last Admin: 12/24/19 17:14 Dose: 200 mls/hr Lactated Ringer's (Ringers, Lactated) 1,000 mls @ 125 mls/hr IV ASDIRECTED [facility] Last Admin: 12/24/19 18:26 Dose: 125 mls/hr Labs: Laboratory Tests 12/24/19 12/24/19 12/24/19 Range/Units 16:00 16:00 16:00 WBC 12.63 H (5.00-10.00) 10^3/uL RBC 4.26 (3.80-5.50) 10^6/uL Hgb 13.0 (12.0-16.0) g/dL Hct 40.5 (37.0-47.0) % MCV 95.1 H (82.0-92.0) fL MCH 30.5 (27.0-31.0) pg MCHC 32.1 (32.0-36.0) g/dL RDW 14.5 (11.5-14.5) % Plt Count 404 H (150-400) 10^3/uL MPV 9.1 (7.4-10.4) fL Immature Gran % (Auto) 0.2 (0.0-5.0) % Neut % (Auto) 84.5 H (50.0-70.0) % Lymph % (Auto) 10.1 L (20.0-40.0) % Brown % (Auto) 4.8 (2.0-8.0) % Eos % (Auto) 0.2 L (1.0-3.0) % Baso % (Auto) 0.2 (0.0-1.0) % Immature Gran # (Auto) 0.03 (0.00-0.50) 10^3/uL Neut # (Auto) 10.66 H (2.50-7.00) 10^3/uL Lymph # (Auto) 1.28 (1.00-4.00) 10^3/uL Brown # (Auto) 0.61 (0.10-0.80) 10^3/uL Eos # (Auto) 0.02 L (0.10-0.30) 10^3/uL Baso # (Auto) 0.03 (0.00-0.10) 10^3/uL Sodium 137 (136-145) mmol/L Potassium 4.6 (3.3-5.3) mmol/L Chloride 96 L (98-115) mmol/L Carbon Dioxide 35.4 H (21.0-32.0) mmol/L Anion Gap 10.2 (5-15) mmol/L BUN 23 (6-25) mg/dL Creatinine 0.80 (0.51-1.17) mg/dL Est Cr Clr Drug Dosing 53.38 mL/min Estimated GFR (MDRD) > 60 mL/min Glucose 164 H (75 - 99) mg/dL Lactic Acid 1.5 (0.4-2.0) mmol/L Calcium 9.3 (8.7-10.3) mg/dL Total Bilirubin 0.7 (0.2-1.0) mg/dL AST 126 H (15-37) U/L ALT 197 H (12-78) U/L Alkaline Phosphatase 54 (46-116) IU/L Total Protein 6.9 (6.4-8.2) g/dL Albumin 3.63 (3.00-4.80) g/dL Meds: Medications Generic Name Dose Route Start Last Admin Trade Name Freq PRN Reason Stop Dose Admin Sodium Chloride 50 mls @ 200 mls/hr 12/24/19 17:00 12/24/19 17:14 Normal Saline IV 200 mls/hr ASDIRECTED [facility] Administration Lactated Ringer's 1,000 mls @ 125 mls/hr 12/24/19 18:15 12/24/19 18:26 Ringers, Lactated IV 125 mls/hr ASDIRECTED [facility] Administration Discontinued Medications Generic Name Dose Route Start Last Admin Trade Name Freq PRN Reason Stop Dose Admin Hydromorphone HCl 0.5 mg 12/24/19 17:09 12/24/19 17:23 Dilaudid IVPUSH 12/24/19 17:10 0.5 mg ONETIME ONE Administration Iopamidol 100 ml 12/24/19 16:50 04/28/20 17:14 Isovue-370 (76%) IV 12/24/19 16:51 75 ml ONETIME ONE Administration - Re-Assessments/Exams Free Text/Narrative Re-Assessment/Exam: 12/24/19 16:42 Kidney function okay so will proceed with contrast CT. Patient stable. 12/24/19 18:09 CT shows a high grade distal small bowel obstruction in RLQ with free fluid between abnormal loops of bowel with early changes of ischemia. I discussed with patient and she is okay going to [facility]. Discussed case with Dr. Corcoran, surgeon who accepted for transfer. He would like LR bolus/maintenance and wants her feeding tube put to gravity to decompress bowel; if not successful to place NG tube. We put tube to gravity and a fair amount of gastric contents flowed out. Patient is not experiencing discomfort now. Nurse says 400 ml have drained so far but it is still draining. Patient stable and comfortable at discharge. Departure - Departure Time of Disposition: 18:08 Disposition: DC/Tfer to Acute Hospital 02 Condition: Good Clinical Impression: SBO (small bowel obstruction), Ischemic stricture of intestine - Discharge Information Referrals: Annette Talbert MD [Primary Care Provider] - Forms: ED Department Discharge Additional Instructions: 1. No metformin for 48 hours after the IV contrast in the ER today. Sepsis Event Note - Focused Exam Vital Signs: Vital Signs Temp Pulse Resp BP Pulse Ox 12/24/19 16:03 97.9 F 80 20 143/58 H 94 L Date Exam was Performed: 12/24/19 Time Exam was Performed: 18:30 - My Orders Last 24 Hours: My Active Orders 12/24/19 17:00 Sodium Chloride 0.9% [Normal Saline] 50 ml IV ASDIRECTED 12/24/19 18:15 Lactated Ringers [Ringers, Lactated] 1,000 ml IV ASDIRECTED - Assessment/Plan Last 24 Hours: My Active Orders 12/24/19 17:00 Sodium Chloride 0.9% [Normal Saline] 50 ml IV ASDIRECTED 12/24/19 18:15 Lactated Ringers [Ringers, Lactated] 1,000 ml IV ASDIRECTED
[2019-12-24 16:33] LABS: ANION GAP 10.2 mmol/L (5-15); CHLORIDE,CL 96 mmol/L (98-115); SODIUM,NA 137 mmol/L (136-145)
[2019-12-24] MEDS ORDERED: Iopamidol 755 Mg/ML 100 ML Bottle IV ONE (16:50)
[2019-12-24] MEDS ORDERED: Sodium Chloride 0.9% 50 ML IV SCH (17:00)
[2019-12-24] MEDS ORDERED: HYDROmorphone 1 MG/ML Syringe IVPUSH ONE (17:09)
--- NOTE | 2019-12-24 17:32 | CT ---
[id number] CT/CT Abdomen Pelvis W IV EXAM: CT Abdomen Pelvis W IV CLINICAL DATA: PAIN,POSSIBLE BOWEL OBSTRUCTION,PNEUMATOSIS. COMPARISON STUDY: March 27, 2019. FINDINGS: Dilated and distended loops of small bowel throughout the abdomen and pelvis containing air-fluid levels. Transition to decompressed bowel in the right lower quadrant seen best on series 2 images 92-103. At the transition point, there is abnormal contour of the associated mesenteric vessels suggesting possible internal hernia or adhesive band (series 2 images 101-107). Scattered areas of free fluid throughout the mesentery of the abnormally dilated and distended loops of small bowel. Findings are nonspecific but can be seen with early changes of ischemia. No pneumatosis, portal venous gas, or evidence of viscus perforation. Percutaneous gastrostomy tube in place. Colonic diverticula. No evidence of acute diverticulitis. Liver, spleen, pancreas, and adrenal glands are unremarkable. Cystic mass in the right kidney inferior pole demonstrating characteristics most consistent with a Bosniak category 2 cyst. Advanced changes of thoracolumbar spondylosis. Chronic L1 superior endplate compression deformity. Diffusely decreased bone mineralization. Right femoroacetabular arthroplasty. IMPRESSION: Findings consistent with high-grade distal small bowel obstruction with transition point in the right lower quadrant described in detail above. Free fluid interposed between abnormal loops of bowel can be seen with early changes of ischemia. However no portal venous gas, pneumatosis, or evidence of viscus perforation. Von Higgins MD 12/24/19 [id number] Thank you for allowing us to participate in the care of your patient.
[2019-12-24] MEDS ORDERED: Lactated Ringers 1,000 ML IV SCH (18:15)
== END 2019-12-24 19:15 ==
LOC: KA.ED 15:42
DX: K55.1 Chronic vascular disorders of intestine (principal); I10 Essential (primary) hypertension; E78.00 Pure hypercholesterolemia, unspecified; E11.9 Type 2 diabetes mellitus without complications; E20.9 Hypoparathyroidism, unspecified; F41.0 Panic disorder [episodic paroxysmal anxiety]; F32.9 Major depressive disorder, single episode, unspecified; Z88.5 Allergy status to narcotic agent; Z87.442 Personal history of urinary calculi; Z79.4 Long term (current) use of insulin; Z79.899 Other long term (current) drug therapy; Z90.49 Acquired absence of other specified parts of digestive tract
CPT/HCPCS: 36415; 74177; 80053; 83605; 85025; 96361; 96374; 99285; J1170; J7050; J7120; Q9967; 99284

== ENCOUNTER 2021-05-25 08:08 | Day surgery (SDC) | payer MEDICARE, MEDICAID ==
[~2021-05-25 08:08] MED LIST: Sodium Chloride 0.9% 10 ML Syringe FLUSH PRN
[2021-05-25] MEDS ORDERED: Ondansetron 4 MG/2 ML SDV IVPUSH ONE (08:09)
[2021-05-25] MEDS: Sodium Chloride 0.9% 1,000 ML IV SCH (08:40)
[2021-05-25] MEDS ORDERED: Propofol 200 MG/20 ML SDV ONE (08:46)
--- NOTE | 2021-05-25 09:05 | PCM.PN ---
- General Info Date of Service: 05/25/21 - Review of Systems Systems Review Comment:: 81-year-old female with history of colon polyps here for surveillance colonoscopy. Her recent history and physical is reviewed and no significant changes are noted. She is medically stable to proceed today. I have discussed the proposed colonoscopy with the patient. She agrees to proceed accepting risks. - Patient Data Vitals - Most Recent: Last Vital Signs Temp 98.5 F 05/25/21 08:52 Pulse 84 05/25/21 08:52 Resp 17 05/25/21 08:52 BP 129/72 05/25/21 08:52 Pulse Ox 93 L 05/25/21 08:58 Weight - Most Recent: 78.471 kg Lab Results Last 24 Hours: Laboratory Results - last 24 hr 05/25/21 Range/Units 08:21 POC Glucose 155 H (70-140) mg/dL Med Orders - Current: Current Medications Sodium Chloride (Normal Saline) 1,000 mls @ 50 mls/hr IV ASDIRECTED MERCEDES Last Admin: 05/25/21 08:40 Dose: 50 mls/hr Documented by: Sodium Chloride (Sodium Chloride 0.9% 10 Ml Syringe) 10 ml FLUSH Q8HR PRN PRN Reason: keep vein open Discontinued Medications Propofol (Propofol 200 Mg/20 Ml Sdv) Confirm Administered Dose 400 mg .ROUTE .STK-MED ONE Stop: 05/25/21 08:47 - Patient Data Lab Results Last 24 hrs: Laboratory Results - last 24 hr 05/25/21 Range/Units 08:21 POC Glucose 155 H (70-140) mg/dL Sepsis Event Note - Focused Exam Vital Signs: Vital Signs Temp Pulse Resp BP Pulse Ox 05/25/21 08:58 93 L 05/25/21 08:52 98.5 F 84 17 129/72 - Problem List Review Problem List Initiated/Reviewed/Updated: Yes - My Orders Last 24 Hours: My Active Orders 05/24/21 13:50 Resuscitation Status Routine 05/25/21 08:00 Blood Glucose Check, Bedside [RC] UPON Peripheral IV Care [RC] . DIRECTED Nothing Per Oral Diet [DIET] Sodium Chloride 0.9% [Normal Saline] 1,000 ml IV ASDIRECTED Sodium Chloride 0.9% [Saline Flush] 10 ml FLUSH Q8HR PRN Peripheral IV Insertion Adult [OM.PC] Routine 05/25/21 08:30 Patient to Empty Bladder [RC] ASDIRECTED 05/25/21 09:00 Verify Patient Consent Obtain [RC] ASDIRECTED - Assessment Assessment:: History of colon polyps - Plan Plan:: Colonoscopy
--- NOTE | 2021-05-25 09:48 | PCM.OPNOTE ---
- General Post-Op/Procedure Note Date of Surgery/Procedure: 05/25/21 Operative Procedure(s): Colonoscopy with Polypectomy Findings: Multiple small polyps in the cecum and medium sized polyp in the descending colon Extensive diverticulosis in the sigmoid region without acute inflammation Pre Op Diagnosis: History of colon polyps Post-Op Diagnosis: Colon polyps. Sigmoid diverticulosis Anesthesia Technique: MAC Primary Surgeon: Emir Lopez Pathology: Colon polyps EBL in mLs: 2 Complications: None Condition: Good
--- NOTE | 2021-05-25 10:29 | OR ---
DATE OF SURGERY: 05/25/2021 SURGEON: Emir Lopez MD PREOPERATIVE DIAGNOSIS: History of colon polyps. POSTOPERATIVE DIAGNOSIS: Colon polyps and diverticulosis. OPERATION PERFORMED: Colonoscopy with polypectomy. INDICATIONS FOR SURGERY: This 81-year-old female has a known history of colon polyps and comes today for surveillance colonoscopy. FINDINGS: Multiple polyps were seen on today's exam. The patient has a cluster of 3 polyps in the cecum. These ranged in size from 3-5 mm and were sessile in configuration. The patient also had a 6 mm sessile polyp in the descending colon, 40 cm from the anal verge. There is also extensive diverticulosis in the sigmoid region, although this does not appear to be acutely inflamed or otherwise complicated. DESCRIPTION OF PROCEDURE: The patient was taken to the operating room. She was given intravenous sedation, and with her in the left lateral decubitus position, digital rectal exam was performed showing no rectal masses. The Olympus colonoscope was inserted into the rectum. Retroflexed examination of the rectal canal was performed. The scope was then carefully advanced under direct visualization through the entire length of the colon until the cecum was reached. Cecal acquisition was confirmed by noting the normal internal cecal anatomy including the appendiceal orifice and the ileocecal valve. The light was also noted to transilluminate the abdominal wall in the right lower quadrant. In the cecum, the cluster of 3 polyps were identified. These were all removed grossly in their entirety with multiple bites of the cold biopsy forceps and were submitted as a single specimen. The scope was then slowly withdrawn sequentially re-examining the colonic segments. In the descending colon, the other polyp was noted. This was removed with a cautery snare and retrieved into a polyp trap. The exam was then completed, and with no sign of any bleeding or other complication, the scope was removed, and the patient was taken from the operating room in satisfactory condition. ESTIMATED BLOOD LOSS: 2 mL. COMPLICATIONS: None. PROGNOSIS: Good. /[id number]/MODL
== END 2021-05-25 12:22 | disposition home or self-care (01) ==
LOC: KA.SDS 08:08
PROVIDERS: ATTEND Surgery
DX: Z12.11 Encounter for screening for malignant neoplasm of colon (principal); D12.0 Benign neoplasm of cecum; D12.4 Benign neoplasm of descending colon; K57.30 Diverticulosis of large intestine without perforation or abscess without bleeding; M81.0 Age-related osteoporosis without current pathological fracture; E11.9 Type 2 diabetes mellitus without complications; K21.9 Gastro-esophageal reflux disease without esophagitis; E03.9 Hypothyroidism, unspecified; G47.00 Insomnia, unspecified; N39.0 Urinary tract infection, site not specified; Z88.5 Allergy status to narcotic agent; Z79.899 Other long term (current) drug therapy; Z79.890 Hormone replacement therapy; Z79.84 Long term (current) use of oral hypoglycemic drugs; Z90.49 Acquired absence of other specified parts of digestive tract; Z98.890 Other specified postprocedural states
CPT/HCPCS: 00812; 82947; J2405; J2704; J7030

== ENCOUNTER 2022-09-24 08:00 | Inpatient (IN) | payer MEDICARE, MEDICAID ==
[2022-09-24 09:35] LABS: ANION GAP 13.6 mmol/L (5-15)
[2022-09-24] MEDS ORDERED: Sodium Chloride 0.9% 1,000 ML IV ONE (09:40)
[2022-09-24] MEDS ORDERED: Ibuprofen 200 MG Tab PO PRN (11:56)
[2022-09-24] MEDS ORDERED: Nystatin Topical Powder 15 GM Bottle TOP PRN (11:56)
[2022-09-24] MEDS ORDERED: Loperamide 2 MG Cap PO PRN (11:56)
[2022-09-24] MEDS ORDERED: Carboxymethylcellulose Sodium 0.5% Ophth Soln 15 ML Bottle EYEBOTH PRN (11:56)
[2022-09-24] MEDS ORDERED: Sodium Chloride 0.9% 1,000 ML IV SCH ×2 (12:00→19:00)
[2022-09-24] MEDS ORDERED: Methotrexate 2.5 MG Tab PO SCH (12:00)
[2022-09-24] MEDS ORDERED: ALENDRONATE 10 MG PO SCH (12:00)
[2022-09-24] MEDS: Diclofenac Sodium 1% Gel 100 GM Tube TOP PRN (20:01)
[2022-09-24] MEDS: Acetaminophen 325 MG Tab PO PRN (20:05)
[2022-09-24] MEDS: Mirtazapine 15 MG Tab PO SCH (20:05)
[2022-09-24] MEDS ORDERED: LIDOCAINE HCL TP SCH (21:00)
[2022-09-25] MEDS: Sodium Chloride 0.9% 1,000 ML IV SCH ×3 (01:05→14:31)
[2022-09-25] MEDS: Levothyroxine 75 MCG Tab PO SCH ×2 (06:08→06:29)
[2022-09-25 07:50] LABS: ANION GAP 9.1 mmol/L (5-15)
[2022-09-25] MEDS: metFORMIN 500 MG Tab PO SCH (10:04)
[2022-09-25] MEDS: Acetaminophen 325 MG Tab PO PRN ×2 (10:04→20:33)
[2022-09-25] MEDS: Cholecalciferol (Vitamin D3) 25 MCG Tab PO SCH (10:05)
[2022-09-25] MEDS: Sertraline 50 MG Tab PO SCH (10:06)
[2022-09-25] MEDS: Famotidine 20 MG Tab PO SCH (10:06)
[2022-09-25] MEDS: predniSONE 10 MG Tab PO SCH (10:06)
[2022-09-25] MEDS: Folic Acid 1 MG Tab PO SCH (10:07)
[2022-09-25] MEDS: Multivitamins with Minerals/Iron/Folic Acid/Lycopene Tab PO SCH (10:07)
[2022-09-25] MEDS: Polyethylene Glycol 3350 Powder 17 GM Packet PO SCH (10:11)
[2022-09-25] MEDS ORDERED: Sodium Chloride 0.9% 1,000 ML IV ONE (20:07)
[2022-09-25] MEDS: Mirtazapine 15 MG Tab PO SCH (20:33)
[2022-09-26] MEDS: Sodium Chloride 0.9% 1,000 ML IV SCH (03:01)
[2022-09-26] MEDS: Acetaminophen 325 MG Tab PO PRN (03:54)
[2022-09-26] MEDS: Diclofenac Sodium 1% Gel 100 GM Tube TOP PRN (03:54)
[2022-09-26] MEDS: Levothyroxine 75 MCG Tab PO SCH ×2 (06:02→06:29)
[2022-09-26 07:36] LABS: ANION GAP 13.1 mmol/L (5-15)
[2022-09-26] MEDS: Polyethylene Glycol 3350 Powder 17 GM Packet PO SCH (08:37)
[2022-09-26] MEDS: Folic Acid 1 MG Tab PO SCH (08:38)
[2022-09-26] MEDS: metFORMIN 500 MG Tab PO SCH (08:38)
[2022-09-26] MEDS: Multivitamins with Minerals/Iron/Folic Acid/Lycopene Tab PO SCH (08:38)
[2022-09-26] MEDS: Cholecalciferol (Vitamin D3) 25 MCG Tab PO SCH (08:38)
[2022-09-26] MEDS: Sertraline 50 MG Tab PO SCH (08:38)
[2022-09-26] MEDS: Famotidine 20 MG Tab PO SCH (08:38)
[2022-09-26] MEDS: predniSONE 10 MG Tab PO SCH (08:38)
[2022-09-29] MEDS ORDERED: Methotrexate 2.5 MG Tab PO SCH (09:00)
== END 2022-09-26 10:30 | DRG 565 ==
LOC: KA.ED 08:00 → KA.MS 10:06 → UNDOADMIN 11:35 → KA.MS 11:35
PROVIDERS: ADMIT Internal Medicine; ATTEND Internal Medicine
DX: T79.6XXA Traumatic ischemia of muscle, initial encounter (principal); Q78.0 Osteogenesis imperfecta; R82.4 Acetonuria; I10 Essential (primary) hypertension; R13.10 Dysphagia, unspecified; E20.9 Hypoparathyroidism, unspecified; E89.0 Postprocedural hypothyroidism; M54.9 Dorsalgia, unspecified; F32.A Depression, unspecified; H04.123 Dry eye syndrome of bilateral lacrimal glands; E03.9 Hypothyroidism, unspecified; W19.XXXA Unspecified fall, initial encounter; Z66 Do not resuscitate; G72.49 Other inflammatory and immune myopathies, not elsewhere classified; G47.00 Insomnia, unspecified; K21.9 Gastro-esophageal reflux disease without esophagitis; E11.65 Type 2 diabetes mellitus with hyperglycemia; H54.7 Unspecified visual loss; G89.29 Other chronic pain; M19.90 Unspecified osteoarthritis, unspecified site; F41.0 Panic disorder [episodic paroxysmal anxiety]; E78.00 Pure hypercholesterolemia, unspecified; E53.8 Deficiency of other specified B group vitamins; E61.1 Iron deficiency; R32 Unspecified urinary incontinence; Z96.659 Presence of unspecified artificial knee joint; Z96.641 Presence of right artificial hip joint; Z79.899 Other long term (current) drug therapy; Z79.52 Long term (current) use of systemic steroids; Z79.84 Long term (current) use of oral hypoglycemic drugs; Z79.890 Hormone replacement therapy; Z90.49 Acquired absence of other specified parts of digestive tract; Z90.710 Acquired absence of both cervix and uterus
CPT/HCPCS: 36415; 73562-RT; 80048; 80053; 81001; 82550; 85025; 96360; 99223; 99284-25; A9270-GY; J7030; J7512

== ENCOUNTER 2023-03-08 10:33 | Emergency (ER) | payer MEDICARE, MEDICAID | END 2023-03-08 18:00 | disposition EXP | LOC: KA.ED 10:33 | DX: I46.9 Cardiac arrest, cause unspecified (principal); E03.9 Hypothyroidism, unspecified; E11.9 Type 2 diabetes mellitus without complications; I10 Essential (primary) hypertension; Z79.84 Long term (current) use of oral hypoglycemic drugs; Z79.899 Other long term (current) drug therapy; Z88.5 Allergy status to narcotic agent | CPT/HCPCS: 99285 ==